=== PATIENT | male | born 1960 ===

== ENCOUNTER → 2022-12-24 07:52 | Outpatient (BNVA) | payer OTHER, SELFPAY | PROVIDERS: PCP Nurse Practitioner Family; Visit Provider Internal Medicine Rheumatology | DX: Z13.89 Encounter for screening for other disorder (principal) ==

== ENCOUNTER 2023-02-08 06:01 | Emergency (ER) | payer OTHER, SELFPAY ==
--- NOTE | ~2023-02-08 | CT_ITS ---
EXAMINATION: CT ORBIT WITH CONTRAST CLINICAL INFORMATION: Orbital cellulitis. COMPARISON: None available. TECHNIQUE: CT of the orbits was performed without and with contrast. Multiplanar reformats were rendered and reviewed. This CT examination was performed using dose optimization techniques as appropriate, variously including the following: *Automated exposure control *Adjustment of mA and/or kV according to patient size (this includes techniques or standardized protocols for targeted exams where dose is matched to indication/reason for exam; i.e. extremities or head) *Use of iterative reconstruction technique DLP: 179 mGy-cm FINDINGS: There is mild thickening and infiltration within the subcutaneous fat involving the left more than right malar eminence and infraorbital tissues. There is yep, inflammation within the preseptal region of the left more than right. There is no evidence of stranding within the intraconal or extraconal fat. There is no retrobulbar lesion. The optic nerve sheath complexes appear normal and symmetric. The extraocular muscles appear normal. The globes are symmetric. The cavernous sinuses demonstrate normal enhancement. The superior ophthalmic veins are patent and symmetric. The frontal sinuses are clear. There is mild ethmoid mucosal thickening. There is mild mucosal thickening in the left sphenoid sinus. There is severe near-complete opacification of the right maxillary sinus with internal aerated secretions. There is periapical disease involving the left second maxillary molar. The mastoids and middle ear cavities are clear. There is no acute intracranial abnormality. Chronic microangiopathic changes are seen within the white matter and there is mild degree of diffuse brain parenchymal volume loss. CT/CT orbit BI w IV con IMPRESSION: 1. Mild thickening and infiltration within the subcutaneous fat involving the left more than right malar eminence and infraorbital tissues compatible with preseptal cellulitis. No evidence of orbital involvement. 2. Severe near-complete opacification of the right maxillary sinus with internal aerated secretions. Periapical disease involving the left second maxillary molar.
[2023-02-08 06:09] VITALS: BP 150/100; BP 175/101; PULSE 73; PULSE 80; RESP 18; TEMP 36.5; O2SAT 95; O2SAT 98; BMI 27.0
--- NOTE | 2023-02-08 06:36 | ED.GENADULT ---
HPI - General Adult General Chief complaint: General Medical Stated complaint: Chemical exposure to face 3 weeks ago Time Seen by Provider: 02/08/23 06:34 Source: patient, RN notes reviewed and old records reviewed Mode of arrival: ambulatory History of Present Illness HPI narrative: 62-year-old male with a past medical history of lupus, HTN, hypothyroid, gout, CKD, HLD, diabetes, presenting to the ED complaining of chemical exposure to face 3 weeks ago from [employer]. Admits wears safety goggles however felt small drop to left side of face, reports progressively worsening, was seen at [facility] yesterday prescribed Polytrim without relief. Reports increasing facial erythema, swelling, blurry vision, and purulence/watery drainage from eyes > left. Patient wears glasses, denies drink contacts. Denies vision loss, fever/chills, pain with EOMs Onset (ago): week(s) Related Data Home Medications Medication Instructions Recorded Confirmed folic acid 1 mg tablet 1 mg PO DAILY 02/08/23 02/08/23 metformin 500 mg tablet,extended 1,000 mg PO DAILY 02/08/23 02/08/23 release 24 hr polymyxin B sulfate 10,000 1 drp ophthalmic (eye) Q6H 02/08/23 02/08/23 unit-trimethoprim 1 mg/mL eye drops Previous Rx's Medication Instructions Recorded allopurinol 100 mg tablet 200 mg PO DAILY #60 tabs 12/24/22 hydroxychloroquine 200 mg tablet 200 mg PO BID #60 tabs 12/24/22 levothyroxine 50 mcg tablet 50 mcg PO DAILY #30 tabs 12/24/22 lisinopril 10 mg tablet 10 mg PO DAILY #30 tabs 12/24/22 simvastatin 20 mg tablet 20 mg PO DAILY #30 tabs 12/24/22 Allergies Allergy/AdvReac Type Severity Reaction Status Date / Time naproxen AdvReac Intermediate Rash Verified 02/08/23 06:13 Review of Systems Review of Systems: Constitutional: No Fever, No Chills, No Fatigue, No Malaise ENT/Mouth: No Ear Pain, No Nasal Congestion, No sore throat, No Rhinorrhea, No Swallowing Difficulty Eyes: + Eye Pain, + Swelling, +Redness, No Foreign Body, + Discharge, + Vision Changes Cardiovascular: No Chest Pain, No SOB, No Edema, No Palpitations Respiratory: No Cough, No Sputum, No Wheezing, No Smoke Exposure, No Dyspnea Gastrointestinal: No Nausea, No Vomiting, No Diarrhea, No Constipation, No Abdominal pain Musculoskeletal: No joint pain, No Myalgias, No Joint Swelling Skin: No Skin Lesions, + rash Neuro: No Weakness, No Numbness, No Paresthesias, No Loss of Consciousness, No Dizziness, No Headache Yes all other systems are reviewed and are negative Constitutional: Constitutional: Reports as per HPI Eyes: Eyes: Reports photophobia [facility] Past Medical History Attestation statement: The following information was validated with the patient. Source: old records reviewed Medical History CKD (chronic kidney disease) stage 3, GFR 30-59 ml/min Diabetes mellitus Gout Hx of completed stroke Hyperlipidemia Hypertension Hypothyroid Long-term use of hydroxychloroquine Systemic lupus erythematosus Social History Social History Alcohol intake: unknown Smoked in Last 30 Days: No Use of substances other than those prescribed or required for medical reasons: Unknown Advance Directives: No Advance Directives Information Provided: Yes Physical Exam ED Vital Signs: Vital Signs - 24 hr 02/08/23 06:09 02/08/23 07:32 02/08/23 10:00 Temperature 97.7 F 97.6 F Pulse Rate 73 86 66 Respiratory Rate 18 20 17 Blood Pressure 175/101 H 163/96 H Pulse Oximetry 95 96 95 Oxygen Delivery Method Room Air Room Air Room Air BMI result Body Mass Index 27.0 Const General: cooperative and no acute distress Orientation/consciousness: patient oriented x3 Limitations: no limitations HENFL Head: Yes normal to inspection and Yes atraumatic Ears: hearing grossly normal bilaterally General nose exam: Normal external nose present Face and sinus: Yes normal facial exam Mouth: Normal oral and palatal mucosa present Eyes Other: Please refer to imaging above. Bilateral periorbital erythema/swelling > left with crusting, watery and purulence drainage. Bilateral diffuse conjunctival conjunction noted. EOM mildly limited 2/2 pain. No evidence of globe rupture. No crepitus Pupils: Equal, round and reactive pupils present Direct Ophthalmoscopy: photophobia Neck Neck: Yes normal visual inspection and Yes no meningeal signs Resp Effort & Inspection: normal respiratory effort and no respiratory distress Cardio Rate: regular rate Heart sounds: S1 normal heart sound present and S2 normal heart sound present Skin Rashes: no rashes Wounds: no wounds Neuro General: patient oriented x3, tone normal and no meningeal signs Cranial nerves: Yes Equal, round and reactive pupils present Gait exam (Neuro): Normal gait present Extrem General: Yes normal to inspection Course Course Course Narrative: -0900--no leukocytosis. Labs otherwise reassuring. Lactic acid negative -case d/w. Dr. Fall who is in agreement with plan CT orbit BI w IV con IMPRESSION: 1.? Mild thickening and infiltration within the subcutaneous fat involving the left more than right malar eminence and infraorbital tissues compatible with preseptal cellulitis. No evidence of orbital involvement. 2.? Severe near-complete opacification of the right maxillary sinus with internal aerated secretions. Periapical disease involving the left second maxillary molar. >> due to clinical concern of orbital cellulitis will consult Ophthalmology -unable to perform IOP to L eye secondary to copious discharge. Right eye IOP L -[facility] not accepting transfers at this time -929--spoke with [facility] transfer line, awaiting call back -101--spoke with Dr. Holbrook at [facility], accepted admission, patient we going to 544 bed 1 Medications Administered Discontinued Medications Generic Name Dose Route Start Last Admin Trade Name Jerry PRN Reason Stop Dose Admin Acetaminophen 975 mg 02/08/23 08:59 02/08/23 09:57 Acetaminophen 325 Mg Tablet PO 02/08/23 09:00 975 mg ONCE ONE Administration Ceftriaxone Sodium 2 gm/ 50 mls @ 100 mls/hr 02/08/23 06:56 02/08/23 07:56 Sodium Chloride IV 02/08/23 07:25 Infused ONCE ONE Infusion Vancomycin HCl 2,000 mg in 500 mls @ 250 mls/hr 02/08/23 07:31 02/08/23 08:04 Vancomycin/Ns IV 02/08/23 09:30 250 mls/hr ONCE ONE Administration Iohexol 85 ml 02/08/23 08:00 02/08/23 08:01 Iohexol 350 Mg/Ml 100 Ml Infus..Btl IV 02/08/23 08:01 85 ml ONCE ONE Administration Tetracaine HCl 1 drop 02/08/23 06:53 02/08/23 07:30 Tetracaine Hcl/Pf 0.5% Oph Uma 4 Ml Drops EYE-BOTH 02/08/23 06:54 1 drop ONCE ONE Administration Medical Decision Making Medical Decision Making MDM Narrative: 62-year-old male with a past medical history of lupus, HTN, hypothyroid, gout, CKD, HLD, diabetes, presenting to the ED complaining of chemical exposure to face 3 weeks ago from [employer] XL. On exam hypertensive, NAD, please refer to imaging above, bilateral periorbital erythema, swelling, diffuse conjunctival injection with purulence drainage & limited EOM noted. Concern for orbital cellulitis vs preseptal cellulitis vs ?chemical exposure reaction although delayed. Low suspicion for zoster or globe rupture Plan: Visual acuity, labs including lactic/blood cultures, CT orbits, empiric IV antibiotics Please refer to course for remaining clinical decision making, interpretation of labs/imaging results, and discussions with consultants and/or family members. Differential Diagnosis Differential Diagnoses: The differential diagnosis associated with the presentation includes As above Admission/Observation Consideration of admission/observation: Escalation of care including admission/observation considered Consult Healthcare Provider Management of the patient was discussed with: Health Management Consultant Lab Data [facility] Lab Attestation statement: I reviewed the patient's lab results. 02/08/23 07:11 02/08/23 07:11 Labs: Lab Results 02/08/23 02/08/23 02/08/23 Range/Units 07:11 07:11 07:16 WBC 8.6 (4.8-10.8) X10*3/uL RBC 4.90 (4.60-5.80) X10*6/uL Hgb 14.9 (14.0-18.0) g/dl Hct 43.0 (42.0-52.0) % MCV 87.8 (80.0-98.0) fL MCH 30.4 (27.0-33.0) pg MCHC 34.7 (31.0-36.0) g/dl RDW 12.0 (11.0-16.0) % Plt Count 326 (160-400) X10*3/uL MPV 9.8 (9.4-12.4) fL Immature Gran % (Auto) 0.5 H (0.0-0.4) % Neut % (Auto) 67.1 (45-73) % Lymph % (Auto) 17.4 L (20-40) % [place] % (Auto) 11.3 H (2-11) % Eos % (Auto) 2.9 (0-4) % Baso % (Auto) 0.8 (0-2) % Lymph # (Auto) 1.5 (1.2-4.9) X10*3/uL [place] # (Auto) 1.0 (0.1-1.2) X10*3/uL Eos # (Auto) 0.3 (0.0-0.4) X10*3/uL Baso # (Auto) 0.1 (0.0-0.2) X10*3/uL Abs Immat Gran (auto) 0.04 H (0.00-0.03) X10*3/uL Absolute Neuts (auto) 5.8 (2.0-8.3) x10*3/uL Absolute Nucleated RBC 0.000 (0.0-0.012) X10*3/uL Nucleated RBC % (auto) 0.0 (0.0-0.2) /100WBC ESR 12 (0-15) MM/HR Sodium 138 (135-145) mmol/L Potassium 3.9 (3.3-5.1) mmol/L Chloride 107 (96-108) mmol/L Carbon Dioxide 23 (22-29) mmol/L Anion Gap 12 (12-20) BUN 14 (9-16) mg/dL Creatinine 0.87 (0.5-1.4) mg/dL Estim Creat Clear Calc 82.9 Estimated GFR > 60 Random Glucose 145 H (60-115) mg/dL Lactic Acid (0.5-2.0) mmol/L Calcium 9.7 (8.4-10.2) mg/dL C-Reactive Protein 0.38 (< or = 0.50) mg/dL 02/08/23 Range/Units 07:16 WBC (4.8-10.8) X10*3/uL RBC (4.60-5.80) X10*6/uL Hgb (14.0-18.0) g/dl Hct (42.0-52.0) % MCV (80.0-98.0) fL MCH (27.0-33.0) pg MCHC (31.0-36.0) g/dl RDW (11.0-16.0) % Plt Count (160-400) X10*3/uL MPV (9.4-12.4) fL Immature Gran % (Auto) (0.0-0.4) % Neut % (Auto) (45-73) % Lymph % (Auto) (20-40) % [place] % (Auto) (2-11) % Eos % (Auto) (0-4) % Baso % (Auto) (0-2) % Lymph # (Auto) (1.2-4.9) X10*3/uL [place] # (Auto) (0.1-1.2) X10*3/uL Eos # (Auto) (0.0-0.4) X10*3/uL Baso # (Auto) (0.0-0.2) X10*3/uL Abs Immat Gran (auto) (0.00-0.03) X10*3/uL Absolute Neuts (auto) (2.0-8.3) x10*3/uL Absolute Nucleated RBC (0.0-0.012) X10*3/uL Nucleated RBC % (auto) (0.0-0.2) /100WBC ESR (0-15) MM/HR Sodium (135-145) mmol/L Potassium (3.3-5.1) mmol/L Chloride (96-108) mmol/L Carbon Dioxide (22-29) mmol/L Anion Gap (12-20) BUN (9-16) mg/dL Creatinine (0.5-1.4) mg/dL Estim Creat Clear Calc Estimated GFR Random Glucose (60-115) mg/dL Lactic Acid 0.7 (0.5-2.0) mmol/L Calcium (8.4-10.2) mg/dL C-Reactive Protein (< or = 0.50) mg/dL Radiology Impression Discussion of test interpretation with radiology: I have reviewed the radiologist's reading. External Record Review External record reviewed: Inpatient record, Office record, Outpatient record, Prior outpatient labs, Prior outpatient radiology, Primary care record and Outside ED record Tests considered The following testing was considered but not selected: As above Critical Care Time Critical Care Time Critical Care Time: Yes Total Critical Care Time: 50 Attestation: I have personally provided critical care time exclusive of time spent on separately billable procedures. Time includes review of lab data, radiology results, discussion with consultants, and monitoring for potential decompensation. Intervention performed as documented. Discharge Plan Discharge Clinical Impression: Preseptal cellulitis Patient Disposition: [facility] Transfer Details: [facility], accepting Dr. Holbrook Prescriptions: No Action polymyxin B sulf-trimethoprim 10,000 unit- 1 mg/mL drops 1 drp ophthalmic (eye) Q6H folic acid 1 mg tablet 1 mg PO DAILY metformin 500 mg tablet extended release 24 hr 1,000 mg PO DAILY hydroxychloroquine 200 mg tablet 200 mg PO BID Qty: 60 6RF lisinopril 10 mg tablet 10 mg PO DAILY Qty: 30 5RF allopurinol 100 mg tablet 200 mg PO DAILY Qty: 60 6RF levothyroxine 50 mcg tablet 50 mcg PO DAILY Qty: 30 5RF simvastatin 20 mg tablet 20 mg PO DAILY Qty: 30 5RF
[2023-02-08 07:15] LABS: MANUAL DIFF FLAG NO
[2023-02-08 07:25] LABS: Basophils Absolute Auto 0.1 X10*3/uL (0.0-0.2); Basophils Percent Auto 0.8 % (0-2); Eosinophils Absolute Auto 0.3 X10*3/uL (0.0-0.4); Eosinophils Percent Auto 2.9 % (0-4); Hemoglobin 14.9 g/dl (14.0-18.0); Imm Gran Abs Auto 0.04 X10*3/uL (0.00-0.03); Imm Gran Pct Auto 0.5 % (0.0-0.4); Lymphocytes Absolute Auto 1.5 X10*3/uL (1.2-4.9); Lymphocytes Percent Auto 17.4 % (20-40); Mean Corpuscular HGB Conc 34.7 g/dl (31.0-36.0); Mean Corpuscular Hemoglobin 30.4 pg (27.0-33.0); Mean Corpuscular Volume 87.8 fL (80.0-98.0); Mean Platelet Volume 9.8 fL (9.4-12.4); Monocytes Percent Auto 11.3 % (2-11); Neutrophils Absolute Auto 5.8 x10*3/uL (2.0-8.3); Neutrophils Percent Auto 67.1 % (45-73); Platelet Count 326 X10*3/uL (160-400); White Blood Count 8.6 X10*3/uL (4.8-10.8)
[2023-02-08] MEDS: cefTRIAXone sodium 2 GM in 0.9 % Sodium Chloride 50 ML IV (07:30)
[2023-02-08] MEDS: Tetracaine HCl/PF 0.5% Oph Sol 4 ML DROPS 1 DROP EYE-BOTH (07:30)
[2023-02-08 07:31] LABS: Anion Gap 12 (12-20); Blood Urea Nitrogen 14 mg/dL (9-16); C Reactive Protein 0.38 mg/dL (< or = 0.50); Calcium 9.7 mg/dL (8.4-10.2); Carbon Dioxide 23 mmol/L (22-29); Chloride 107 mmol/L (96-108); Creatinine Clr Calc Pharmacy 82.9; Estimated Glomerular Filt Rate > 60; Glucose Random 145 mg/dL (60-115); Potassium 3.9 mmol/L (3.3-5.1); Sodium 138 mmol/L (135-145)
[2023-02-08 07:32] VITALS: PULSE 86; RESP 20; O2SAT 96
[2023-02-08 07:37] LABS: Lactic Acid 0.7 mmol/L (0.5-2.0)
[2023-02-08] MEDS: iohexoL 350 MG/ML 100 ML INFUS..BTL 85 ML IV (08:01)
[2023-02-08] MEDS: vancomycin/NS 2,000 MG/500 ML PLAST..BAG 250 MG IV (08:04)
[2023-02-08 08:05] LABS: Erythrocyte Sedimentation Rate 12 MM/HR (0-15)
--- NOTE | 2023-02-08 08:39 | PHA.MEDREC ---
Pharmacy Consult ? Medication Reconciliation Pharmacy has completed the medication reconciliation. spoke with patient. He was able to verify his medications. His metformin is prescribed for 500mg BID however he takes 1000mg once daily at home. Patient only had Polymyxin eye drops today.
--- NOTE | 2023-02-08 09:23 | MHC.EDTECH ---
@[phone] called [facility] at the request of ROHITH Lakhani. Spoke with an individual on the phone. Stated we want to transfer the pt to them. The individual states that they are closed to Ophthalmology transfers and closed to ED to ED transfers. The individual on the phone recommended we call [facility]. Lola NEWBERRY aware that [facility] would not take the patient.
--- NOTE | 2023-02-08 09:26 | MHC.EDTECH ---
@[phone] called [facility] to see if they would take the patient. The individual on the phone took patient demographics and a call back number. She requested to speak to ROHITH Davila regarding the diagnosis. Lola took the call right away. Waiting for a call back from [facility] at this time to see if they will accept.
[2023-02-08] MEDS: Acetaminophen 325 MG TABLET 975 MG PO (09:57)
[2023-02-08 10:00] VITALS: BP 163/96; PULSE 66; RESP 17; TEMP 36.4; O2SAT 95
--- NOTE | 2023-02-08 10:14 | MHC.EDTECH ---
@0547 [facility] calls back to speak with Lola NEWBERRY. Lola notifies me that the patient was accepted to [facility]. The accepting is Dr. Holbrook. Direct admission to 544 Bed 1 per Lola.
== END 2023-02-08 12:11 | disposition short-term general hospital (02) ==
PROVIDERS: Physician Assistant; Emergency Provider Internal Medicine; PCP Internal Medicine
DX: L03.213 Periorbital cellulitis (principal); E11.22 Type 2 diabetes mellitus with diabetic chronic kidney disease; I12.9 Hypertensive chronic kidney disease with stage 1 through stage 4 chronic kidney disease, or unspecified chronic kidney disease; N18.30 Chronic kidney disease, stage 3 unspecified; E78.5 Hyperlipidemia, unspecified; Z79.899 Other long term (current) drug therapy; Z79.02 Long term (current) use of antithrombotics/antiplatelets; Z79.84 Long term (current) use of oral hypoglycemic drugs
CPT/HCPCS: 36415; 70481; 80048; 83605; 85025; 85652; 86140; 87040; 96365; 96366; 96367; 99284; 99285; J0696; J3370; Q9967

== ENCOUNTER 2023-05-13 09:18 | Outpatient (AMB) | payer OTHER, SELFPAY ==
--- NOTE | 2023-05-13 09:26 | MHC.OFFVIS ---
Intake Vital Signs 05/13/23 09:28 Height 5 ft 8 in Weight 171 lb 8.314 oz BMI 26.1 BP 122/70 Blood Pressure Location Lt brachial Position Sitting Pulse 68 Pulse Source Pulse Oximeter Temp 97.2 F Temp Source Skin Pulse Oximetry (%) 96 Oxygen Delivery Method Room Air Intake Visit Reasons: Gout flare up Intake Note: Here for gout flare. c/o right knee swelling, painful, very red , hard to bend. 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 Accompanied by: Self / Same As Patient Allergies naproxen Adverse Reaction (Intermediate, Verified 05/13/23 09:30) Rash Medication List - Last Reconciled 05/13/23 by Elie Prabhakar MD allopurinol 200 mg (2 x 100 mg) PO DAILY empagliflozin (Jardiance) 10 mg PO DAILY folic acid 1 mg PO DAILY hydroxychloroquine 200 mg PO BID levothyroxine 50 mcg PO DAILY lisinopril 10 mg PO DAILY metformin ER 1,000 mg PO DAILY polymyxin B sulf-trimethoprim 10,000 unit- 1 mg/mL 1 drp ophthalmic (eye) Q6H simvastatin 20 mg PO DAILY tobramycin-dexamethasone 0.3-0.1 % 2 drps ophthalmic (eye) QID HPI HPI Comments History of Present Illness Details The patient presents with complaints of pain and swelling in the right knee. This developed about 6 days ago. He noted a scab over the anterior knee the a day before that. He has been able to bicycle to work but notes more pain with standing or walking. He has not had any fever or chills. He does have a history of gout but has been faithful with taking allopurinol 200 mg daily for number of years now. He also of course has SLE currently on hydroxychloroquine 200 mg twice a day. He is on lisinopril for hypertension and recently had Jardiance added to his metformin for his type 2 diabetes. At the end of January he developed inflammation and pain in the eyes. I do not have the hospital record but it sounds like there was concern about a cellulitis of the orbit. At the time of the orbital swelling there was much irritation of the skin thought to be a chemical reaction to a substance he has been working with. He was hospitalized for 2 days and received he says intravenous antibiotics and subsequent oral antibiotics. The skin lesions and the eye swelling have totally resolved. He still using a topical eyedrops he says pending another eye doctor appointment. He tells me there is an eye procedure planned for June. It sounds like he may be having a plastic procedure on his eyelids. He does not seem to have any other skin rashes or joint pains. He has noted a little bit of ankle edema in the past month. [facility] Medical History CKD (chronic kidney disease) stage 3, GFR 30-59 ml/min Diabetes mellitus Gout Hx of completed stroke Hyperlipidemia Hypertension Hypothyroid Long-term use of hydroxychloroquine Systemic lupus erythematosus Social History (Updated 05/13/23 @ 09:30 by CHER Shearer) Household Members: Spouse Alcohol intake: former Patient Tobacco Use Status: Never used Tobacco Review of Systems Const Details: Negative for appetite change, weight change, fever, chills, malaise and fatigue Eyes Details: See HPI for episode of eye inflammation the end of January. Presently negative for vision change, dry eyes,headaches and dizziness ENT Details: Negative for hearing change, tinnitus, oral ulcer, nose bleeds and oral dryness. Card Details: Some ankle edema as noted above. Negative chest pain, palpitations and syncope Resp Details: Negative for SOB, cough and wheezing GI Details: Negative indigestion/heartburn, nausea, abdominal pain, bowel changes, diarrhea, constipation and bloody stool. Details: Negative for dysuria, hematuria, nocturia, decreased force/flow and genital discharge Skin/Breast Details: Slight area of skin redness on the right wrist. This occurred at the same time as he had the chemical exposure on his face. It is subsiding. Negative for itching, hives, Raynaud's symptoms, sun sensitivity, and skin cancer Neuro Details: Negative for epilepsy, palsy, stroke, changes in speech, tingling and weakness Psych Details: Negative for anxiety, depression and stress Endo Details: Negative for polyuria and polydypsia Dino/Lymph Details: Negative for excessive bruising or bleeding. Physical Exam Vital Signs: Last Vital Signs Temp 97.2 F 05/13/23 09:28 Pulse 68 05/13/23 09:28 BP 122/70 05/13/23 09:28 Pulse Ox 96 05/13/23 09:28 Oxygen Delivery Method Room Air 05/13/23 09:28 BMI result Body Mass Index 26.1 APPEARANCE: Patient in no acute distress EYES no redness, pupils equal and reactive to light, eyelids normal EARS: External ear normal, canal clear and tympanic membrane normal. NOSE/SINUS: Airflow through both nares, no nasal discharge, no bleeding THROAT: Oral mucosa moist, no ulcerations NECK: No thyromegaly or masses, no adenopathy, trachea midline. HEART: Regulrar rhythm, S1-S2 heard, no murmurs, rubs or gallops. LUNG: Clear to percussion and auscultation ABD: Normal bowel sounds, no organomegaly, masses or tenderness. EXTREMITIES: There is trace ankle and pedal edema on the left and a bit more ankle and pedal edema on the right. He has no calf tenderness, normal peripheral pulses. NEURO: Oriented and alert x3. No focal weakness. Reflexes symmetric. Gait normal. SKIN: There is a patch of red skin over the right lateral wrist region. This looks like a contact dermatitis. The right knee has some redness with an eschar in the middle of it. No other skin rashes. Photograph of knees: LEFT RIGHT JOINT EXAM: ?? Right knee has swelling with mild pain at the extremes of flexion extension. Anteriorly the knee has some bogginess and redness consistent with cellulitis. There may also be some element of prepatellar bursitis. There is a skin lesion that healing anteriorly that could have been an injury wound. I do not really detect joint fluid present and has no tenderness around the joint margins. There is no popliteal swelling or tenderness. Other joints have pain-free range of motion without any tenderness or swelling. Results Reviewed Results Reviewed: Laboratory Tests 02/08/23 02/08/23 02/08/23 07:11 07:11 07:16 WBC 8.6 Hgb 14.9 ESR 12 Creatinine 0.November lab work from [place]: Creatinine 1.05, A1c 7.5, urine microalbumin creatinine ratio 215 December 2021 lab work: Uric acid 3.7 Assessment & Plan Assessment & Plan (1) Systemic lupus erythematosus: Comment: 2004: Rash, joint pains, Positive anti-DNA, proteinuria, renal Bx with focal GN 02/2005. Increased proteinuria 09/26; Cellcept restarted 10/27- stoppped 02/27(nephritis symptoms improved) Repeat renal biopsy - 02/12/12 - diffuse lupus nephritis, stage 3 to 4. Minimal scarring. Cellcept again 1426-3412 with remission Eye exam for hydroxychloroquine toxicity negative February 2015, December 2016, December 2017, May 2019, Jun 2020, June 2021 Code(s): M32.9 - Systemic lupus erythematosus, unspecified (2) Gout: Comment: Left wrist attack: MSU crystals present allopurinol since 2011 Code(s): M10.9 - Gout, unspecified (3) CKD (chronic kidney disease) stage 3, GFR 30-59 ml/min: Comment: Dr. Mcclure - 05/07/16 - doing well, creatinine 1.2 (stage II currently), check for proteinuria; f/u 1 year 06/02/18 - renal function at baseline; follow-up 1 year 07/20/2019 -doing well, increase lisinopril to 10 mg/day, add folic acid; Code(s): N18.30 - Chronic kidney disease, stage 3 unspecified (4) Diabetes mellitus: Code(s): E11.9 - Type 2 diabetes mellitus without complications (5) Acute cellulitis: Code(s): L03.90 - Cellulitis, unspecified Plan The patient has some swelling and pain in the right prepatellar region. There may be some bogginess in the prepatellar bursa but not enough to tap for fluid. He does have an entry wound so I think this is a localized cellulitis with maybe some extension into the prepatellar bursa. It has been there for a week he and he still has the ability to walk on it. I do not see any fluid within the joint that would suggest intra-articular infection or inflammation. He does have a history of gout and this could be gout but the relatively low level of inflammation would suggest more likely an infection. We will treat him with Keflex 500 q.i.d.. I will check some lab work looking into the his renal function, proteinuria, CBC and inflammatory markers. The ankle edema could be because he has been on his feet more but in the recent past previously he had such edema with exacerbation of his renal disease from SLE. I did warn him that if the knee inflammation does not subside after 2 days on the antibiotics he needs to go to the ER to be admitted for intravenous antibiotics. He was advised to go home and elevate his legs. He should be out of work for week. Follow-up in a week would be reasonable. Orders: Orders Basic Metabolic Panel Today M32.9 - Systemic lupus erythematosus, unspecified Comprehensive Met. Panel Today M32.9 - Systemic lupus erythematosus, unspecified C Reactive Protein Today M32.9 - Systemic lupus erythematosus, unspecified Protein Creatinine Ratio, Ur Today M32.9 - Systemic lupus erythematosus, unspecified Complete Blood Count Auto Diff Today M32.9 - Systemic lupus erythematosus, unspecified Erythrocyte Sedimentation Rate Today M32.9 - Systemic lupus erythematosus, unspecified Medications: New cephalexin 500 mg PO QID 40 caps 0RF L03.90 - Cellulitis, unspecified Coding Level of Care Code Est Pt Level 4 (81768) Diagnoses Systemic lupus erythematosus M32.9 Gout M10.9 CKD (chronic kidney disease) stage 3, GFR 30-59 ml/min N18.30 Diabetes mellitus E11.9 Acute cellulitis L03.90
[2023-05-13 09:28] VITALS: BP 122/70; PULSE 68; TEMP 36.2; O2SAT 96; BMI 26.1
== END 2023-05-13 10:00 | disposition home or self-care (01) ==
PROVIDERS: PCP Internal Medicine; Visit Provider Internal Medicine Rheumatology
DX: M32.9 Systemic lupus erythematosus, unspecified (principal); M10.9 Gout, unspecified; N18.30 Chronic kidney disease, stage 3 unspecified; E11.9 Type 2 diabetes mellitus without complications; L03.90 Cellulitis, unspecified
CPT/HCPCS: 99214

== ENCOUNTER → 2023-05-13 09:18 | Outpatient (BNVA) | payer OTHER, SELFPAY | PROVIDERS: PCP Internal Medicine; Visit Provider Internal Medicine Rheumatology ==

== ENCOUNTER 2023-05-13 10:12 | Outpatient (REF) | payer OTHER, SELFPAY ==
[2023-05-13 13:17] LABS: MANUAL DIFF FLAG NO
[2023-05-13 13:21] LABS: Basophils Absolute Auto 0.1 X10*3/uL (0.0-0.2); Basophils Percent Auto 0.8 % (0-2); Eosinophils Absolute Auto 0.3 X10*3/uL (0.0-0.4); Eosinophils Percent Auto 2.6 % (0-4); Hematocrit 41.7 % (42.0-52.0); Hemoglobin 13.7 g/dl (14.0-18.0); Imm Gran Abs Auto 0.06 X10*3/uL (0.00-0.03); Imm Gran Pct Auto 0.6 % (0.0-0.4); Lymphocytes Absolute Auto 1.9 X10*3/uL (1.2-4.9); Lymphocytes Percent Auto 19.7 % (20-40); Mean Corpuscular HGB Conc 32.9 g/dl (31.0-36.0); Mean Corpuscular Hemoglobin 30.4 pg (27.0-33.0); Mean Corpuscular Volume 92.7 fL (80.0-98.0); Mean Platelet Volume 10.5 fL (9.4-12.4); Monocytes Absolute Auto 1.3 X10*3/uL (0.1-1.2); Monocytes Percent Auto 13.2 % (2-11); Neutrophils Absolute Auto 5.9 x10*3/uL (2.0-8.3); Neutrophils Percent Auto 63.1 % (45-73); Platelet Count 391 X10*3/uL (160-400); Red Cell Distribution Width 12.6 % (11.0-16.0); White Blood Count 9.4 X10*3/uL (4.8-10.8)
[2023-05-13 13:54] LABS: Alanine Aminotransferase 36 U/L (0-40); Alkaline Phosphatase 80 U/L (39-117); Anion Gap 11 (12-20); Aspartate Amino Transferase 22 U/L (5-37); Bilirubin Total 0.2 mg/dL (0.0-1.0); Blood Urea Nitrogen 21 mg/dL (9-16); C Reactive Protein 6.68 mg/dL (< or = 0.50); Calcium 9.8 mg/dL (8.4-10.2); Carbon Dioxide 22 mmol/L (22-29); Chloride 109 mmol/L (96-108); Estimated Glomerular Filt Rate > 60; Glucose Random 139 mg/dL (60-115); Potassium 4.4 mmol/L (3.3-5.1); Sodium 138 mmol/L (135-145); Total Protein 7.6 g/dL (6.5-8.0)
[2023-05-13 14:05] LABS: Erythrocyte Sedimentation Rate 65 MM/HR (0-15)
[2023-05-13 14:35] LABS: Creatinine Urine 153.39 mg/dL; Protein/Creatinine Ratio, Ur 0.18 (<0.2); Total Protein Urine Random 28 mg/dL (<12)
== END 2023-05-13 10:13 | disposition home or self-care (01) ==
LOC: HO.10HDL 10:12
PROVIDERS: Visit Provider Internal Medicine Rheumatology
DX: M32.9 Systemic lupus erythematosus, unspecified (principal)
CPT/HCPCS: 36415; 80053; 84156; 85025; 85652; 86140

== ENCOUNTER 2023-05-26 09:16 | Outpatient (AMB) | payer OTHER, SELFPAY ==
--- NOTE | 2023-05-26 09:20 | A.OFFVIS_ITS ---
Intake Vital Signs 05/26/23 09:27 Height 5 ft 8 in Weight 171 lb 11.841 oz BMI 26.1 BP 114/64 Blood Pressure Location Lt brachial Position Sitting Pulse 70 Pulse Source Pulse Oximeter Temp 97.1 F Temp Source Skin Pulse Oximetry (%) 95 Oxygen Delivery Method Room Air Intake Visit Reasons: SLE/Cellulitis Intake Note: Patient here to follow up on right knee redness and swelling. 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 He finished off the course of Keflex. He says the pain is completely gone. He has been able to bicycle to work once again. However there still is some redness anteriorly in the prepatellar region. It is not tender. [facility] Medical History Diabetes mellitus Hx of completed stroke Hyperlipidemia Long-term use of hydroxychloroquine CKD (chronic kidney disease) stage 3, GFR 30-59 ml/min Gout Hypothyroid Hypertension Systemic lupus erythematosus Social History Household Members: Spouse Alcohol intake: former Patient Tobacco Use Status: Never used Tobacco Review of Systems Const Details: Negative for appetite change, weight change, fever, chills, malaise and fatigue Eyes Details: Negative for vision change, dry eyes,headaches and dizziness Skin/Breast Details: There is still some scattered areas of redness from his exposure to the substances at work. He uses some topical steroid cream on this. There is the above-noted redness over the prepatellar region as well. Negative for rash, hives, Raynaud's symptoms, sun sensitivity, and skin cancer Endo Details: Negative for polyuria and polydypsia Dino/Lymph Details: Negative for excessive bruising or bleeding. Physical Exam Vital Signs: Last Vital Signs Temp 97.1 F 05/26/23 09:27 Pulse 70 05/26/23 09:27 BP 114/64 05/26/23 09:27 Pulse Ox 95 05/26/23 09:27 Oxygen Delivery Method Room Air 05/26/23 09:27 BMI result Body Mass Index 26.1 APPEARANCE: Patient in no acute distress EYES no redness, pupils equal and reactive to light, eyelids normal EXTREMITIES: There is no edema today. He has no calf tenderness, normal peripheral pulses. NEURO: Oriented and alert x3. No focal weakness. Reflexes symmetric. Gait normal. SKIN: There is a patchy the patchy redness of red skin over the right prepatellar area. It is not tender or indurated. I do not feel any fluid in the prepatellar bursa. There are a few papules on the right forearm that suggest a contact dermatitis. No other skin rashes. JOINT EXAM: ?? Right knee: pain-free range of motion with no swelling or tenderness. The skin overlying the patella has the above noted changes. No induration or tenderness. There are breaks in the skin. Other joints have pain-free range of motion without any tenderness or swelling.? Assessment & Plan Assessment & Plan (1) Acute cellulitis: Code(s): L03.90 - Cellulitis, unspecified Plan There is still a little redness anteriorly in the prepatellar region. This could be some return of his prepatellar cellulitis so I will put him on some antibiotics. We will put him on doxycycline this time in the event that there could have been a resistant organism. It is also possible this could be some dermatitis related to SLE or his previously exposure to the industrial chem icals. He will continue with topical steroids in this area. We will aim for follow-up at about 3 months. The lupus seems stable. He did not have significant proteinuria and renal function seems stable. Medications: New doxycycline hyclate 100 mg PO BID 20 caps 0RF L03.90 - Cellulitis, unspecified Coding Level of Care Code Est Pt Level 3 (84170) Diagnoses Acute cellulitis L03.90
[2023-05-26 09:27] VITALS: BP 114/64; PULSE 70; TEMP 36.2; O2SAT 95; BMI 26.1
== END 2023-05-26 10:05 | disposition home or self-care (01) ==
PROVIDERS: PCP Internal Medicine; Visit Provider Internal Medicine Rheumatology
DX: L03.90 Cellulitis, unspecified (principal)
CPT/HCPCS: 99213

== ENCOUNTER → 2023-05-26 09:16 | Outpatient (BNVA) | payer OTHER, SELFPAY | PROVIDERS: PCP Internal Medicine; Visit Provider Internal Medicine Rheumatology ==

== ENCOUNTER 2023-05-28 04:17 | Observation (INO) | payer OTHER, SELFPAY ==
[2023-05-28] VITALS (8 sets, daily range): BP systolic 80–127; BP diastolic 59–89; PULSE 65–80; RESP 12–18; TEMP 35.9–36.5; O2SAT 94–100; BMI 25.1
--- NOTE | 2023-05-28 | ECG_ITS ---
Test Reason : DIZZINESS Blood Pressure : / mmHG Vent. Rate : 075 BPM Atrial Rate : 075 BPM P-R Int : 200 ms QRS Dur : 102 ms QT Int : 404 ms P-R-T Axes : 058 019 031 degrees QTc Int : 451 ms Normal sinus rhythm Normal ECG No previous ECGs available Referred By: Generic ED Physician Electronically Signed By:CHU DESIR
--- NOTE | ~2023-05-28 | XR_ITS ---
EXAMINATION: XR CHEST CLINICAL INFORMATION: Cough. Hypertension. COMPARISON: None available. TECHNIQUE: 2 views of the chest were obtained. FINDINGS: The cardiomediastinal silhouette is normal. There is no focal lung consolidation or pleural effusion. The bony structures and soft tissues are unremarkable. XR/XR chest 2V IMPRESSION: No active cardiopulmonary disease.
--- NOTE | ~2023-05-28 | XR_ITS ---
EXAMINATION: XR KNEE, RIGHT CLINICAL INFORMATION: Swelling. Rule out effusion. COMPARISON: None available. TECHNIQUE: 2 views of the right knee. FINDINGS: Bone alignment is normal. No fracture or dislocation. The joint spaces are normal. There is a small osteophyte at the quadriceps tendon insertion to the patella. There is no joint effusion. There is soft tissue swelling over the anterior knee overlying the patella and patellar tendon. XR/XR knee RT 2V IMPRESSION: Anterior soft tissue swelling. No joint effusion.
--- NOTE | 2023-05-28 04:37 | MHC.EDTECH ---
Patient arrived by EMS,patient was changed into hospital attire and Vitals taken. Patient placed on the air sampling and monitoring and EKG obtained. Call chowdhury within reach.
[2023-05-28 04:38] LABS: MANUAL DIFF FLAG NO
[2023-05-28 04:39] LABS: Basophils Absolute Auto 0.1 X10*3/uL (0.0-0.2); Basophils Percent Auto 0.4 % (0-2); Eosinophils Absolute Auto 0.1 X10*3/uL (0.0-0.4); Eosinophils Percent Auto 0.5 % (0-4); Hematocrit 42.2 % (42.0-52.0); Hemoglobin 14.2 g/dl (14.0-18.0); Imm Gran Abs Auto 0.07 X10*3/uL (0.00-0.03); Imm Gran Pct Auto 0.5 % (0.0-0.4); Lymphocytes Absolute Auto 1.3 X10*3/uL (1.2-4.9); Lymphocytes Percent Auto 9.3 % (20-40); Mean Corpuscular HGB Conc 33.6 g/dl (31.0-36.0); Mean Corpuscular Hemoglobin 30.7 pg (27.0-33.0); Mean Corpuscular Volume 91.3 fL (80.0-98.0); Mean Platelet Volume 9.7 fL (9.4-12.4); Monocytes Absolute Auto 1.2 X10*3/uL (0.1-1.2); Monocytes Percent Auto 8.8 % (2-11); Neutrophils Absolute Auto 11.1 x10*3/uL (2.0-8.3); Neutrophils Percent Auto 80.5 % (45-73); Platelet Count 385 X10*3/uL (160-400); Red Blood Count 4.62 X10*6/uL (4.60-5.80); Red Cell Distribution Width 12.7 % (11.0-16.0); White Blood Count 13.8 X10*3/uL (4.8-10.8)
[2023-05-28] MEDS: 0.9 % Sodium Chloride 1,000 ML 999 ML IV (04:49)
[2023-05-28 04:55] LABS: Alanine Aminotransferase 28 U/L (0-40); Albumin Level 3.8 g/dL (3.5-5.0); Alkaline Phosphatase 56 U/L (39-117); Anion Gap 16 (12-20); Aspartate Amino Transferase 26 U/L (5-37); Bilirubin Direct 0.2 mg/dL (0.0-0.5); Bilirubin Total 0.4 mg/dL (0.0-1.0); Blood Urea Nitrogen 31 mg/dL (9-16); Calcium 9.2 mg/dL (8.4-10.2); Carbon Dioxide 17 mmol/L (22-29); Chloride 107 mmol/L (96-108); Creatinine Clr Calc Pharmacy 41.4; Estimated Glomerular Filt Rate 40; Glucose Random 157 mg/dL (60-115); Lipase 16 U/L (8-78); Potassium 4.2 mmol/L (3.3-5.1); Sodium 136 mmol/L (135-145); Total Protein 6.9 g/dL (6.5-8.0)
[2023-05-28 05:07] LABS: Troponin-I High Sensitivity 4.3 ng/L (<3.5-35.0)
--- NOTE | 2023-05-28 05:29 | ED.DIZZY ---
HPI - Dizziness General Chief Complaint: Dizziness Stated Complaint: dizziness Time Seen by Provider: 05/28/23 05:06 Source: patient Mode of arrival: EMS Limitations: no limitations History of Present Illness HPI Narrative: 62-year-old male with history of diabetes, hypertension, hyperlipidemia, hypothyroidism, lupus on hydrochloroquine, chronic kidney disease who presents emergency department for evaluation of lightheadedness, dizziness and rash to his right arm. The patient works at the [employer]. 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 He states that he was not wearing gloves and did get some glue on his hand. After getting the glue on his hand he did developed redness and pruritus to the right hand and right arm. He states that he developed a rash that spread to include his entire right arm. States he has had a similar rash in the past when this glue is gotten his skin. He states that about 2 hours after the exposure to the glue he felt lightheaded and dizzy as if the room was spinning he was going to pass out. He states that his hands and feet then became numb and were cramping. He states that he had a lie down on the floor since he felt like he was going to pass out. An ambulance was called. The paramedics reported that his blood pressure was 80/66. His blood pressure on arrival was 105/ 68 and the other vital signs were normal. The patient does have a history of skin infections and had a left preseptal orbital cellulitis 02/08/2023, seen here in the emergency department and sent to [facility] for further management. the patient's lupus is treated by ourrheumatologist Dr. Prabhakar who saw the patient on 05/13/2023 secondary to a swollen right knee. Patient states that he was told that he had a right knee infection and he completed a course of cephalexin. I did review Dr. Prabhakar snow the patient was treated for cellulitis with possible pre patella bursitis of the right knee. Follow-up note on 05/26/2023 states that the patient's symptoms completely resolved However he still had redness over the prepatellar region and scattered rash over his body which Dr. Prabhakar felt be secondary to exposure from chemicals at work. The patient denied fever, chills, rhinorrhea, sore throat. he has had a nonproductive cough over the last several days. He denied chest pain, shortness of breath, nausea, vomiting, diarrhea. States that he has frequency at his baseline but no dysuria. Related Data Home Medications Medication Instructions Recorded Confirmed folic acid 1 mg tablet 1 mg PO DAILY 02/08/23 05/28/23 metformin 500 mg tablet,extended 1,000 mg PO DAILY 02/08/23 05/28/23 release 24 hr empagliflozin 10 mg tablet 10 mg PO DAILY 05/13/23 05/28/23 (Jardiance) tobramycin 0.3 %-dexamethasone 0.1 2 drp ophthalmic (eye) QID 05/13/23 05/28/23 % eye drops,suspension acetaminophen 650 mg 1,300 mg PO Q8H PRN Pain 05/28/23 05/28/23 tablet,extended release simvastatin 20 mg tablet 20 mg PO BEDTIME 05/28/23 05/28/23 Previous Rx's Medication Instructions Recorded allopurinol 100 mg tablet 200 mg (2 x 100 mg) PO DAILY #60 12/24/22 tabs hydroxychloroquine 200 mg tablet 200 mg PO BID #60 tabs 12/24/22 levothyroxine 50 mcg tablet 50 mcg PO DAILY #30 tabs 12/24/22 lisinopril 10 mg tablet 10 mg PO DAILY #30 tabs 12/24/22 doxycycline hyclate 100 mg capsule 100 mg PO BID #20 caps 05/26/23 Allergies Allergy/AdvReac Type Severity Reaction Status Date / Time naproxen AdvReac Intermediate Rash Verified 05/26/23 09:25 Review of Systems Review of Systems: Yes all other systems are reviewed and are negative [facility] Past Medical History [facility] Narrative: Social history: He is . He denies tobacco, alcohol and drug use. 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 Medical History Diabetes mellitus Hx of completed stroke Hyperlipidemia Long-term use of hydroxychloroquine CKD (chronic kidney disease) stage 3, GFR 30-59 ml/min Gout Hypothyroid Hypertension Systemic lupus erythematosus Social History Social History Household Members: Spouse Alcohol intake: never Patient Tobacco Use Status: Never used Tobacco Smoked in Last 30 Days: No Use of substances other than those prescribed or required for medical reasons: No Advance Directives: No Advance Directives Information Provided: Yes Nutrition Risks: No Nutritional Risk service: No Physical Exam Vital Signs: Vital Signs: Last Vital Signs Temp 97.7 F 05/28/23 06:04 Pulse 70 05/28/23 10:32 Resp 18 05/28/23 06:04 BP 119/82 05/28/23 10:32 Pulse Ox 96 05/28/23 06:04 O2 Del Method Room Air 05/28/23 06:04 BMI result Body Mass Index 25.1 Vital signs reviewed and were normal Exam General: Awake, alert in no distress Head: Normocephalic, atraumatic EENT: PERRL, Lids normal, sclera normal, conjunctiva normal, nose normal , ears normal, throat without erythema or exudates. Patient's left eye deviates the left but he does have full range of motion, states is chronic any has a lazy eye Neck: Supple, no adenopathy, trachea midline and nontender Lung: breath sounds symmetric, no wheezing, rales or rhonchi Chest: symmetric movement, nontender Heart: regular rate and rhythm, normal S1, S2 no murmurs or rubs Abdomen: soft, non-tender, nondistended, normal bowel sounds Back: no vertebral tenderness, no CVAT Extremities: no deformities, moves all extremities symmetrically Skin: the patient has an erythematous nonblanching rash to his right arm from the hand all the way to the shoulder, it is slightly warm to the touch, he has several small isolated areas of erythema to his right chest which do not willie with pressure, patient's right is warm to the touch, the area is erythematous with no significant joint effusion. Neuro: Awake, alert, oriented, normal speech, cranial nerves intact, moves all extremities symmetrically Psych: Pleasant, cooperative Medications Administered Generic Name Dose Route Start Last Admin Trade Name Freq PRN Reason Stop Dose Admin Enoxaparin Sodium 40 mg 05/28/23 06:15 05/28/23 06:42 Enoxaparin Sodium 40 Mg/0.4 Ml Syringe SUBCUT 40 mg Q24H JOANIE Administration Lactated Ringer's 1,000 mls @ 125 mls/hr 05/28/23 10:00 05/28/23 10:27 Lr IVCONT 125 mls/hr .Q8H JOANIE Administration Insulin Human Lispro 0 unit 05/28/23 07:30 05/28/23 12:11 Insulin Lispro 100 Unit/Ml 3 Ml Vial SUBCUT Not Given QIDACHS COUNTS INCLUDE 234 BEDS AT THE [facility] Protocol Sodium Chloride 3 ml 05/28/23 08:00 05/28/23 12:22 0.9 % Sodium Chloride Flush 3 Ml Syringe IVFLUSH Not Given QSHIFT COUNTS INCLUDE 234 BEDS AT THE [facility] Discontinued Medications Generic Name Dose Route Start Last Admin Trade Name Freq PRN Reason Stop Dose Admin Diphenhydramine HCl 50 mg 05/28/23 06:27 05/28/23 06:41 Diphenhydramine Hcl 50 Mg/Ml Vial IVPUSH 05/28/23 06:28 50 mg ONCE ONE Administration Sodium Chloride 1,000 mls @ 999 mls/hr 05/28/23 04:45 05/28/23 05:55 Ns IV 05/28/23 05:45 Infused .Q1H1M JOANIE Infusion Sodium Chloride 1,000 mls @ 999 mls/hr 05/28/23 05:15 05/28/23 06:45 Ns IVCONT 05/28/23 06:15 Infused .Q1H1M JOANIE Infusion Vancomycin HCl 2,000 mg in 500 mls @ 250 mls/hr 05/28/23 05:34 05/28/23 08:31 Vancomycin/Ns IV 05/28/23 07:33 Infused ONCE ONE Infusion Ceftriaxone Sodium 1 gm/ 50 mls @ 100 mls/hr 05/28/23 05:34 05/28/23 06:25 Sodium Chloride IV 05/28/23 06:03 Infused ONCE ONE Infusion Methylprednisolone Sodium Succinate 125 mg 05/28/23 05:34 05/28/23 05:52 Methylprednisolone Sod Succ 125 Mg/2 Ml Vial IVPUSH 05/28/23 05:35 125 mg ONCE ONE Administration Medical Decision Making Medical Decision Making MDM Narrative: 62-year-old male with history of diabetes mellitus, hypertension, hyperlipidemia, hypothyroidism, lupus on hydrochloroquine, gout, chronic kidney disease, who was recently treated for right knee cellulitis prepatellar bursitis with cephalexin (05/13/2023) who presents emergency department for evaluation of a rash to his right arm which occurred after he was exposed to glue at work, who then developed lightheadedness and dizziness several hours later to the point where had a near syncopal episode 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 patient was found to be hypotensive by the paramedics with a blood pressure of 80/66 with a blood pressure of 105/68 in the emergency department with otherwise normal vital signs. The patient's review of systems did reveal a nonproductive cough times several days otherwise unremarkable with no reported fever or chills over the last several days. Patient's physical examination did reveal significant erythematous, nonblanchingrash to his right arm, small areas ofrash to his right chest, warm, erythematous rash to to his right the which is warm to touch in blanching with pressure with no significant joint effusion. Following evaluation was ordered: CBC, CMP, lactic acid, blood cultures x2, urinalysis, EKG, chest x-ray two-view 0552: Patient's examination is concerning for rash to his right arm, right chest and right knee. Patient was recently treated for right knee cellulitis and prepatellar bursitis with cephalexin. This time concerned that the patient may have recurrence of the cellulitis versus allergic reaction with anaphylaxis. given his diabetes mellitus, lupus treated with hydrochloroquine, the patient is immunocompromised therefore I will get him admitted treat him for both an allergic reaction and cellulitis with Solu-Medrol 125 mg IV, vancomycin 2 g IV and ceftriaxone 1 g IV. I will discuss admission with the covering hospitalist. I patient's EKG was unremarkable in 1st troponin was detectable but not elevated 4.3, I will repeat at 07:30 hours 0605: I did discuss admission over tiger text with the covering hospitalist, Dr. Alvarez accept the patient onto the hospitalist service. Patient will be admitted to the medical telemetry unit. 1327: Patient's troponins have been rising and have increased from 6.7, 32.5 and 205.1 at 12:26 hours. I did tiger text the covering hospitalist, Dr. Zamora to make sure that he is aware of these values. Patient was sent to the overflow unit and will either be brought back to the emergency department and placed on a monitored bed or taken to the medical telemetry unit since he cannot be in overflow unit with there is no monitoring. the patient did have a near syncopal episode most likely triggered by his hypotension this may have caused a type 2 injury to explain his elevated troponins. Differential Diagnosis Differential Diagnoses: The differential diagnosis associated with the presentation includes 0552: Differential diagnosis includes was not limited to allergic reaction with anaphylaxis and hypotension, cellulitis, hyperventilation syndrome with carpal pedal spasm, myocardial infarction myocardial ischemia Admission/Observation Consideration of admission/observation: Escalation of care including admission/observation considered Consult Healthcare Provider Management of the patient was discussed with: Hospitalist Lab Data MDM Lab Attestation statement: I reviewed the patient's lab results. my interpretation patient's laboratory evaluation is as follows: Elevated white blood count 08118, elevated BUN creatinine above his baseline at 31 and 1.74 with his baseline being 21 and 1.02 on 05/13/2023 this could be secondary to volume depletion or dehydration. Do not think that this is secondary to end-organ damage. High sensitive troponin I was detectable but not elevated at 4.3. LFTs were normal. Lipase was normal. Lactic acid was normal at 0.8. 05/28/23 04:34 05/28/23 04:34 Labs: Lab Results 05/28/23 05/28/23 Range/Units 04:34 05:45 WBC 13.8 H (4.8-10.8) X10*3/uL RBC 4.62 (4.60-5.80) X10*6/uL Hgb 14.2 (14.0-18.0) g/dl Hct 42.2 (42.0-52.0) % MCV 91.3 (80.0-98.0) fL MCH 30.7 (27.0-33.0) pg MCHC 33.6 (31.0-36.0) g/dl RDW 12.7 (11.0-16.0) % Plt Count 385 (160-400) X10*3/uL MPV 9.7 (9.4-12.4) fL Immature Gran % (Auto) 0.5 H (0.0-0.4) % Neut % (Auto) 80.5 H (45-73) % Lymph % (Auto) 9.3 L (20-40) % [place] % (Auto) 8.8 (2-11) % Eos % (Auto) 0.5 (0-4) % Baso % (Auto) 0.4 (0-2) % Lymph # (Auto) 1.3 (1.2-4.9) X10*3/uL [place] # (Auto) 1.2 (0.1-1.2) X10*3/uL Eos # (Auto) 0.1 (0.0-0.4) X10*3/uL Baso # (Auto) 0.1 (0.0-0.2) X10*3/uL Abs Immat Gran (auto) 0.07 H (0.00-0.03) X10*3/uL Absolute Neuts (auto) 11.1 H (2.0-8.3) x10*3/uL Absolute Nucleated RBC 0.000 (0.0-0.012) X10*3/uL Nucleated RBC % (auto) 0.0 (0.0-0.2) /100WBC Sodium 136 (135-145) mmol/L Potassium 4.2 (3.3-5.1) mmol/L Chloride 107 (96-108) mmol/L Carbon Dioxide 17 L (22-29) mmol/L Anion Gap 16 (12-20) BUN 31 H (9-16) mg/dL Creatinine 1.74 H (0.5-1.4) mg/dL Estim Creat Clear Calc 41.4 Estimated GFR 40 Random Glucose 157 H (60-115) mg/dL Lactic Acid 0.8 (0.5-2.0) mmol/L Calcium 9.2 D (8.4-10.2) mg/dL Total Bilirubin 0.4 (0.0-1.0) mg/dL Direct Bilirubin 0.2 (0.0-0.5) mg/dL AST 26 (5-37) U/L ALT 28 (0-40) U/L Alkaline Phosphatase 56 (39-117) U/L Troponin I High Sens 4.3 6.7 D (<3.5-35.0) ng/L C-Reactive Protein 0.33 (< or = 0.50) mg/dL Total Protein 6.9 (6.5-8.0) g/dL Albumin 3.8 (3.5-5.0) g/dL Lipase 16 (8-78) U/L Independent Interpretation I performed an independent interpretation of an: EKG and Plain X-Ray ( Two-view chest x-ray) Interpretation: My independent interpretation the patient's 12 EKG done at 04:28 hours is as follows: sinus rhythm with a rate of 75, prolonged TX interval of 200 milliseconds consistent with a first-degree AV block, no ST segment elevation, no ST segment depression, no significant T-wave abnormalities, no PACs, no PVCs. my independent interpretation patient's 2 you chest x-rays as follows: No acute disease, this correlates with the radiology reading. Radiology Impression Discussion of test interpretation with radiology: I have reviewed the radiologist's reading. Radiologist Impression: XR chest 2V IMPRESSION: No active cardiopulmonary disease. Dictated By: Santana Francisco External Record Review External record reviewed: Outpatient record ( Dr. Prabhakar office note) Chronic Conditions Patient?s care impacted by: Diabetes and Other ( lupus) Critical Care Time Critical Care Time Critical Care Time: Yes Total Critical Care Time: 45 Attestation: Critical Care: The patient was critically ill with a high probability of imminent or life threatening deterioration. I spent greater than 30 minutes of discontinuous time evaluating the patient,delivering critical care at the bedside, discussing and evaluating pertinent data with consultants. Critical care time does not include time spent performing separately billable procedures or teaching. Total time spent performing critical care was 45 minutes. Discharge Plan Discharge Clinical Impression: Acute hypotension Cellulitis Qualifiers: Site of cellulitis: extremity Site of cellulitis of extremity: lower extremity Laterality: right Qualified Code(s): L03.115 - Cellulitis of right lower limb Allergic reaction Qualifiers: Encounter type: initial encounter Qualified Code(s): T78.40XA - Allergy, unspecified, initial encounter Patient Disposition: Admitted As Inpatient
[2023-05-28] MEDS: 0.9 % Sodium Chloride 1,000 ML 999 ML IVCONT (05:46)
[2023-05-28] MEDS: cefTRIAXone sodium 1 GM in 0.9 % Sodium Chloride 50 ML IV (05:52)
[2023-05-28] MEDS: methylPREDNISolone Sod Succ 125 MG/2 ML VIAL IVPUSH (05:52)
--- NOTE | 2023-05-28 05:56 | MHC.EDTECH ---
Blood cultures and lactic drawn and sent to lab. Belongings list completed and patient has 657.00 Mcca[place]y patient refused safe.
--- NOTE | 2023-05-28 06:05 | MHC.EDTECH ---
Hourly rounds and vitals completed. Call chowdhury within reach
[2023-05-28 06:07] LABS: Lactic Acid 0.8 mmol/L (0.5-2.0)
--- NOTE | 2023-05-28 06:10 | P.HPHOSP_ITS ---
History of Present Illness Date of Service: 05/28/23 Chief Complaint: Dizziness This is a 62-year-old male with pertinent history of hypothyroidism, essential hypertension, mixed hyperlipidemia, [id number] diabetes mellitus, SLE on hydroxychloroquine who presents to the emergency department for evaluation of dizziness. 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 Patient states his arm got red and he got dizzy and lightheaded. Does admit similar allergic reaction to glue in the past. Also had an episode of diarrhea. No chest pain or palpitations. EMS noted that her blood pressure was low upon arrival. Patient also complaining of right knee swelling and erythema. He was given a course of Keflex by his tub wash operator for a cellulitis of the knee. No improvement noted with Keflex and it was changed to doxycycline 1 day prior to presentation. Patient denies fever, chills, chest discomfort, palpitations, shortness of breath, abdominal pain, changes in urinary or bowel habits In the emergency department, creatinine found to be elevated Review of Systems 2 Constitutional: Constitutional: Reports fatigue and Reports malaise ENT: Reports dizziness Cardiovascular: Cardiovascular: Reports no additional cardiovascular complaints Respiratory: Respiratory: Reports no additional respiratory complaints Gastrointestinal: Gastrointestinal: Reports no additional gastrointestinal complaints Genitourinary: Genitourinary: Reports no additional male genitourinary complaints Neurologic: Reports dizziness Endocrine: Endocrine: Reports fatigue [facility] Medical History Diabetes mellitus Hx of completed stroke Hyperlipidemia Long-term use of hydroxychloroquine CKD (chronic kidney disease) stage 3, GFR 30-59 ml/min Gout Hypothyroid Hypertension Systemic lupus erythematosus Social History Household Members: Spouse Alcohol intake: never Patient Tobacco Use Status: Never used Tobacco Smoked in Last 30 Days: No Use of substances other than those prescribed or required for medical reasons: No Advance Directives: No Advance Directives Information Provided: Yes Meds Allergies Allergy/AdvReac Type Severity Reaction Status Date / Time naproxen AdvReac Intermediate Rash Verified 05/26/23 09:25 Active Medications: Current Medications Sodium Chloride (Ns) 1,000 mls @ 999 mls/hr IVCONT .Q1H1M JOANIE Stop: 05/28/23 06:15 Last Admin: 05/28/23 05:46 Dose: 999 mls/hr Vancomycin HCl (Vancomycin/Ns) 2,000 mg in 500 mls @ 250 mls/hr IV ONCE ONE Stop: 05/28/23 07:33 Pharmacy Consult (Consult Rx Vancomycin Dosing) 1 each MISCELLANE DAILY PRN PRN Reason: Consult order Home Medications Medication Instructions Recorded Confirmed Last Taken Type folic acid 1 mg tablet 1 mg PO DAILY 02/08/23 05/13/23 Unknown History metformin 500 mg tablet,extended 1,000 mg PO DAILY 02/08/23 05/13/23 Unknown History release 24 hr polymyxin B sulfate 10,000 1 drp ophthalmic (eye) Q6H 02/08/23 05/13/23 02/08/23 History unit-trimethoprim 1 mg/mL eye drops empagliflozin 10 mg tablet 10 mg PO DAILY 05/13/23 05/13/23 Unknown History (Jardiance) tobramycin 0.3 %-dexamethasone 0.1 2 drp ophthalmic (eye) QID 05/13/23 05/13/23 Unknown History % eye drops,suspension Physical Exam 2 Vital Signs and Narrative: Vital Signs: Last Vital Signs Temp 97.7 F 05/28/23 06:04 Pulse 66 05/28/23 06:04 Resp 18 05/28/23 06:04 BP 122/89 05/28/23 06:04 Pulse Ox 96 05/28/23 06:04 O2 Del Method Room Air 05/28/23 06:04 BMI result Body Mass Index 25.1 Middle-aged male lying in bed in no distress Neck supple, no JVD Regular rate and rhythm, S1-S2 heard Regular breath sounds bilaterally, no wheezing or crackles appreciated Abdomen soft nontender, no guarding, no rigidity Patient is awake, alert and oriented to self, place, time and person ; no focal motor deficit Musculoskeletal: Right knee swelling, warmth and erythema noted Psych: Normal mood No pedal edema Results Labs 05/28/23 04:34 05/28/23 04:34 Labs: Laboratory Results - last 24 hr 05/28/23 05/28/23 04:34 05:45 MCV 91.3 MCH 30.7 MCHC 33.6 RDW 12.7 Plt Count 385 MPV 9.7 Immature Gran % (Auto) 0.5 H Neut % (Auto) 80.5 H Lymph % (Auto) 9.3 L [place] % (Auto) 8.8 Eos % (Auto) 0.5 Baso % (Auto) 0.4 Lymph # (Auto) 1.3 [place] # (Auto) 1.2 Eos # (Auto) 0.1 Baso # (Auto) 0.1 Abs Immat Gran (auto) 0.07 H Absolute Neuts (auto) 11.1 H Absolute Nucleated RBC 0.000 Nucleated RBC % (auto) 0.0 Anion Gap 16 Estim Creat Clear Calc 41.4 Estimated GFR 40 Random Glucose 157 H Lactic Acid 0.8 Calcium 9.2 D Total Bilirubin 0.4 Direct Bilirubin 0.2 AST 26 ALT 28 Alkaline Phosphatase 56 Total Protein 6.9 Albumin 3.8 Lipase 16 Assessment and Plan (1) Pre-syncope: Status: Acute (2) DEE DEE (acute kidney injury): Status: Acute (3) Cellulitis: Qualifiers: Laterality: right Site of cellulitis: extremity Site of cellulitis of extremity: lower extremity Qualified Code(s): L03.115 - Cellulitis of right lower limb Status: Acute Plan This is a 62-year-old male with pertinent history of hypothyroidism, essential hypertension, mixed hyperlipidemia, [id number]-lihxsjilu diabetes mellitus, SLE on hydroxychloroquine who presents to the emergency department for evaluation of dizziness. #. Presyncope, orthostatic. As evidenced by low blood pressure upon arrival. ?due to allergic reaction. Resuscitated with IV crystalloids. Repeat orthostatics. IV steroids and antihistaminics given in the ER #. Acute kidney injury on CKD. Monitor creatinine and urine output with crystalloid resuscitation. Avoid nephrotoxins and hold lisinopril #. Right knee cellulitis. Reviewed outpatient Rheumatology notes. Initiating empiric IV vancomycin as patient failed outpatient p.o. antibiotics. Monitor and consider imaging if no improvement #. Essential hypertension. Holding CASIMIRO-inhibitor as above #. Mixed hyperlipidemia. On statin #. SLE. On hydroxychloroquine #. Vkj-lcoiasj-cdroejjuo diabetes mellitus. Initiating Accu-Cheks with sliding scale insulin #. Hypothyroidism. On Synthroid Med rec pending DVT prophylaxis: Lovenox Admit as inpatient and will require two night minimum hospital stay for IV antibiotics Time Spent With Patient Time: Total time managing care of this patient today ____ minutes. Quality Stroke Does the patient have a stroke diagnosis?: No VTE Prior VTE?: No VTE Risk Level:: Medical - moderate - high VTE Device Contraindication: Treatment Not Indicated VTE Drug Contraindication: N/A - Med Ordered
[2023-05-28 06:20] LABS: Troponin-I High Sensitivity 6.7 ng/L (<3.5-35.0)
[2023-05-28] MEDS: vancomycin/NS 2,000 MG/500 ML PLAST..BAG 250 MG IV (06:28)
[2023-05-28] MEDS: diphenhydrAMINE HCL 50 MG/ML VIAL IVPUSH (06:41)
[2023-05-28] MEDS: Enoxaparin Sodium 40 MG/0.4 ML SYRINGE SUBCUT (06:42)
[2023-05-28 07:28] LABS: Appearance Urine Clear; Color Urine Yellow; Glucose Urine UA >=1000 mg/dL (Negative); Leukocyte Esterase Urine Negative (Negative); Nitrite Urine Negative (Negative); PH 5.5 (5.0-9.0); UMIC TRIGGER UACC YES; Urine Blood Negative (Negative); Urine Ketones Trace mg/dL (Negative); Urine Protein Trace mg/dL (Neg-Trace)
[2023-05-28 07:36] LABS: Bacteria Urine None Seen (None Seen); RBC Urine 0-2 /HPF (0-2); Squamous Epithelial Cell Urine 0-2 /HPF (0-2); WBC Urine 0-5 /HPF (0-5)
[2023-05-28 08:11] LABS: C Reactive Protein 0.33 mg/dL (< or = 0.50)
--- NOTE | 2023-05-28 08:26 | PHA.MEDREC ---
Pharmacy Consult ? Medication Reconciliation Pharmacy has completed the medication reconciliation. SPOKE TO PATIENT, HE KNEW MEDICATIONS.
[2023-05-28 08:28] LABS: Troponin-I High Sensitivity 32.5 ng/L (<3.5-35.0)
[2023-05-28 08:44] LABS: Glucose, Whole Blood 216 mg/dL (60-115)
[2023-05-28] MEDS: Insulin Lispro 100 UNIT/ML 3 ML VIAL SUBCUT ×3 (08:49→20:47)
[2023-05-28] MEDS: Lactated Ringers 1,000 ML 125 ML IVCONT ×2 (10:27→18:17)
[2023-05-28 12:13] LABS: Glucose, Whole Blood 133 mg/dL (60-115)
[2023-05-28 12:54] LABS: Creatinine Urine 41.99 mg/dL
[2023-05-28 12:59] LABS: Troponin-I High Sensitivity 205.1 ng/L (<3.5-35.0)
--- NOTE | 2023-05-28 13:00 | CA_ITS ---
Transthoracic Echocardiogram Patient (Last, First, Middle): eS Ruiz B Gender: Male Date of : 1960 Age: 62 Procedure Date: 05/28/2023 Procedure Type: Transthoracic Echocardiogram Location: ER Height: 172.72 cm Weight: 74.84 kg BSA: 1.88 m2 Heart Rate: 67 bpm BP: 116 / 69 mmHg Dental Treatment Coordinator: TO Referring MD: Oleg Zamora MD Symptoms: tn-I elevation Study Quality: Adequate ECG Rhythm: Sinus Conclusions: - The left ventricular systolic function is hyperdynamic. The calculated ejection fraction is 72% by biplane method. - Nonspecific thickening in the mitral valve leaflets. There is also suggestion of systolic anterior motion of the mitral chord. Doubt any vegetation. Findings Left Ventricle Normal left ventricular cavity size. The left ventricular systolic function is hyperdynamic. The calculated ejection fraction is 72% by biplane method. There is no evidence of regional wall motion abnormalities. Diastolic function is normal for age. There is mild septal and mild basal asymmetric hypertrophy. Right Ventricle Mildly increased right ventricular cavity size. There is normal right ventricular systolic function. Atria Both atria are normal in size. Aortic Valve There is a normal trileaflet aortic valve. There is mild calcification of the aortic valve. There is no aortic valve stenosis. There is no aortic valve regurgitation. Mitral Valve There is trace mitral valve regurgitation. There is no mitral valve stenosis. Nonspecific thickening in the mitral valve leaflets. There is also suggestion of systolic anterior motion of the mitral chord. Doubt any vegetation. Pulmonic Valve The pulmonic valve is likely normal. Tricuspid Valve Normal tricuspid valve structure. There is mild tricuspid valve regurgitation. There is no evidence of pulmonary hypertension. Great Vessels The asc aorta is normal in size. Venous The inferior vena cava is normal in size and collapses less than 50% with inspiration. Pericardium/Pleural There is no evidence of pericardial effusion. Prior Study Comparison No prior study available for comparison. Recommendations, Care & Conclusions No obvious valvular pathology seen on this study. Measurements 2D Linear Measurements IVSd: 1.40 0.6-0.9/0.6-1.0 cm LVIDd: 4.62 3.9-5.3/4.2-5.9 cm LVIDd Index: 2.46 2.4-3.2/2.2-3.1 cm/m2 LVIDs: 2.04 2.0-3.6 cm LVPWd: 0.91 0.7-1.1 cm LA Diam: 3.80 2.7-3.8/3.0-4.0 cm LAIDs Index: 2.02 1.5-2.3 cm/m2 LV Mass: 243.57 67-162/88-224 g LV Mass Index: 129.56 43-95/49-115 g/m2 LVOT Diam: 2.00 3.0+(-)1.3 cm 2D Systolic Function EF 4C: 70.30 >55% EF 2C: 72.50 >55% EF BiP: 71.80 >55% Mitral Valve MV VTI: 0.31 MV Pk Johnathon: 1.13 MV Mn Johnathon: 0.65 MV Pk Grad: 5.00 MV Mn Grad: 2.00 MV Pk E: 0.78 MV PK A: 0.62 MV Decel Time: 216.00 E/A: 1.20 E'Lateral: 10.60 E'Medial: 6.96 E/E' Med: 11.10 E/E' Lat: 7.30 PHT: 63.00 MVA PHT: 3.49 MVA Continuity: 3.32 Decel [place]: 3.59 Aortic Valve AoV Pk Johnathon: 1.52 AoV Mn Johnathon: 1.22 AoV VTI: 0.35 AoV Pk Grad: 9.00 Aov Mn Grad: 6.00 BRADY Cont.VTI: 2.89 LVOT LVOT Pk Johnathon: 1.33 LVOT Mn Johnathon: 0.95 LVOT VTI: 0.32 LVOT Pk Grad: 7.00 LVOT Mn Grad: 4.00 LVOT Diam: 2.00 LVOT Area: 3.14 Diastolic Function MV Pk E: 0.78 MV Pk A: 0.62 E/A: 1.20 E'Medial: 6.96 E/E' Med: 11.10 E' Laterial: 10.60 E/E' Lat: 7.30 Tricuspid Valve TR Pk Johnathon: 2.46 TR Pk Grad: 24.00 RA Press: 3.00 RVSP: 27.00 Great Vessels Aorta Sinus of Valsalva: 3.50 2.0-3.5 cm Ao Asc: 3.50 2.1-3.4 cm Updated in Other Vendor System with Status of Final Lon Lewis MD electronically signed on 05/28/2023 4:13:26 PM with status of Final
--- NOTE | 2023-05-28 13:01 | ECG_ITS ---
Test Reason : ELEVATED TROP Blood Pressure : / mmHG Vent. Rate : 074 BPM Atrial Rate : 074 BPM P-R Int : 216 ms QRS Dur : 106 ms QT Int : 410 ms P-R-T Axes : 061 -12 042 degrees QTc Int : 455 ms Sinus rhythm with 1st degree A-V block Otherwise normal ECG When compared with ECG of 28-MAY-2023 10:22, No significant change was found Referred By: Oleg Zamora Electronically Signed By:CHU DESIR
--- NOTE | 2023-05-28 13:19 | MHC.CM.PN ---
Addendum entered by Kaylah Matias 05/28/23 14:25: HCP completed, signed and witnessed. Original given to patient. Copy placed in chart. Original Note: Met with patient in regards to discharge planning. Patient lives with his , ambulates independently and had no services prior to coming to the hospital. No services anticipated to be needed because patient is not homebound. PCP verified as being at [facility]. Patient has received 3 Moderna and 1 Pfizer vaccine. Obs notice explained and signed. Patient's , Rose will transport patient home when medically stable. Continue to monitor for d/c needs.
--- NOTE | 2023-05-28 13:20 | PC.NURSE ---
Addendum entered by Ashlee Koch RN 05/28/23 13:22: NO EKG CHANGES NOTED. Original Note: CRITICAL TROP RECEIVED, COMMUNICATED TO HOSPITALIST. REPEAT EKG OBTAINED, SECOND PIV PLACED. PT CURRENTLY DENIES CP, SOB, APPEARS IN NAD AT THIS TIME.
--- NOTE | 2023-05-28 13:34 | PM.EVENT ---
Event Note Date of Service: 05/28/23 Event Note: Day hospitalist update S: Denies any lip/tongue/throat swelling or difficulty breathing. No chest pain or pressure. Some R knee swelling though improving; redness over kneecap. Rash of R forearm improving. O: VS- T 97.4, BP 116/69, P 80, R 16, SaO2 95 on RA Gen: in no acute distress HEENT: sclera anicteric, moist mucus membranes Neck: supple Lungs: clear to auscultation bilaterally Heart: regular rate and rhythm, no murmurs Abd: soft, non-tender, non-distended Ext: swelling over R prepatellar area with some erythema; no fluctuance Skin: R forearm with erythematous papules + macules Neuro: alert and oriented x3, no focal findings Psych: appropriate affect EKG: NSR, no ischemic changes A/P: d1 62yo M with SLE on hydroxychloroquine, DM2, HTN, HLD, hypothyroidism presenting with dizziness and hypotension after developing a contact dermatitis in reaction to industrial glue also recent R knee cellulitis found to have Tn-I elevation though no chest pain Tn-I elevation - telemetry, ASA/atorvastatin, TTE, Cardiology consultation. most likely demand from hypotension but at risk for ACS as well hypotension - suspect either allergic reaction to glue or toxicity of a volatile solvent in the glue [toluene? xylene?]; has resolved; continue IV fluids DEE DEE - suspect prerenal due to hypotensive episode; continue IV fluids and recheck BMP in AM: hold lisinopril R knee cellulitis - failed PO cephalexin, give IV vanco, check X-ray, follow BCx SLE - hydroxychloroquine DM2 - debra-dose lispro hypothyroidism - LT4 VTE ppx - LMWH dispo - eventual home In my clinical judgment, the patient requires continued hospitalization for the following reasons: elev Tn-I, DEE DEE Time Spent With Patient Time: Total time managing care of this patient today ____ minutes.
[2023-05-28] MEDS: Aspirin 81 MG TAB.CHEW 324 MG PO (13:39)
[2023-05-28 16:41] LABS: Glucose, Whole Blood 247 mg/dL (60-115)
[2023-05-28 19:59] LABS: Glucose, Whole Blood 192 mg/dL (60-115)
[2023-05-28] MEDS: Tobramycin/Dexamethasone Oph Oint 3.5 GMTUBE 0.5 INCH EYE-BOTH (20:47)
[2023-05-28] MEDS: Atorvastatin Calcium 80 MG TABLET PO (20:47)
[2023-05-28] MEDS: Hydroxychloroquine Sulfate 200 MG TABLET PO (20:47)
--- NOTE | 2023-05-29 | ECG_ITS ---
Test Reason : elev trop Blood Pressure : / mmHG Vent. Rate : 057 BPM Atrial Rate : 057 BPM P-R Int : 230 ms QRS Dur : 112 ms QT Int : 428 ms P-R-T Axes : 071 -14 033 degrees QTc Int : 416 ms Sinus bradycardia with 1st degree A-V block Otherwise normal ECG When compared with ECG of 28-MAY-2023 13:13, No significant change was found Referred By: Oleg Zamora Electronically Signed By:CHU DESIR
[2023-05-29 04:00] VITALS: BP 121/76; PULSE 74; RESP 18; TEMP 36.4; O2SAT 96
[2023-05-29] MEDS: Lactated Ringers 1,000 ML 125 ML IVCONT (04:51)
[2023-05-29] MEDS: Enoxaparin Sodium 40 MG/0.4 ML SYRINGE SUBCUT (06:29)
[2023-05-29] MEDS: vancomycin HCL 1,000 MG in 0.9 % Sodium Chloride 250 ML 270 MG IV (06:29)
[2023-05-29] MEDS: Levothyroxine Sodium 50 MCG TABLET PO (06:29)
[2023-05-29 07:14] LABS: Alanine Aminotransferase 22 U/L (0-40); Albumin Level 3.4 g/dL (3.5-5.0); Alkaline Phosphatase 53 U/L (39-117); Anion Gap 10 (12-20); Aspartate Amino Transferase 23 U/L (5-37); Bilirubin Total 0.5 mg/dL (0.0-1.0); Blood Urea Nitrogen 25 mg/dL (9-16); Calcium 9.4 mg/dL (8.4-10.2); Carbon Dioxide 20 mmol/L (22-29); Chloride 109 mmol/L (96-108); Creatinine Clr Calc Pharmacy 86.9; Estimated Glomerular Filt Rate > 60; Glucose Random 120 mg/dL (60-115); Potassium 3.8 mmol/L (3.3-5.1); Sodium 135 mmol/L (135-145); Total Protein 6.3 g/dL (6.5-8.0)
[2023-05-29 07:17] LABS: Erythrocyte Sedimentation Rate 8 MM/HR (0-15)
[2023-05-29 07:58] VITALS: BP 133/79; PULSE 55; RESP 16; TEMP 36.3; O2SAT 96
[2023-05-29 08:06] LABS: Glucose, Whole Blood 123 mg/dL (60-115)
[2023-05-29] MEDS: Aspirin 81 MG TAB.CHEW PO (08:51)
[2023-05-29] MEDS: Folic Acid 1 MG TABLET PO (08:51)
[2023-05-29] MEDS: 0.9 % Sodium Chloride Flush 3 ML SYRINGE IVFLUSH (08:51)
[2023-05-29] MEDS: Hydroxychloroquine Sulfate 200 MG TABLET PO (08:51)
[2023-05-29] MEDS: Tobramycin/Dexamethasone Oph Oint 3.5 GMTUBE 0.5 INCH EYE-BOTH ×2 (08:53→13:22)
--- NOTE | 2023-05-29 09:33 | P.CONCA_ITS ---
History of Present Illness History of Present Illness Date of Service: 05/29/23 Chief complaint: Dizziness Narrative: This is a cardiology consultation regarding high troponin levels. Patient has a history of SLE on hydroxychloroquine, diabetes, hypertension, dyslipidemia and he came for dizziness. 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 Apparently he was not wearing his usual protective glove when he changed the glue container and the arm got red and in that context was some dizziness and lightheadedness. However, there was no chest pain. Lowish blood pressure upon EMS arrival. In-hospital blood pressures however are well within normal range. Subsequently brought to the ER and evaluated and admitted. Serial troponin levels have been checked and the levels include 4.3, 6.7, 32.5, 205 and 1570. Hence overall, there has been as significant rise in troponins but he still has no chest pain. Review of Systems 2 Review of Systems: Yes all other systems are reviewed and are negative Constitutional: Constitutional: Reports as per HPI and Reports no additional constitutional complaints Eyes: Eyes: Reports as per HPI and Denies no additional eye complaints ENT: Denies system reviewed and no additional complaints, except as documented and Reports as per HPI Cardiovascular: Cardiovascular: Reports as per HPI, Reports no additional cardiovascular complaints, Denies acrocyanosis, Denies cool extremities, Denies chest pain, Denies leg edema, Denies lightheadedness, Denies palpitations and Denies dyspnea Respiratory: Respiratory: Reports as per HPI, Denies no additional respiratory complaints and Denies dyspnea Gastrointestinal: Gastrointestinal: Reports as per HPI and Denies no additional gastrointestinal complaints Genitourinary: Genitourinary: Reports no additional male genitourinary complaints and Reports as per HPI Musculoskeletal: Musculoskeletal: Reports no additional musculoskeletal complaints and Reports as per HPI Integumentary/Breasts: Skin/Breast: Reports system reviewed and no additional complaints, except as docu Neurologic: Reports system reviewed and no additional complaints, except as documented and Reports as per HPI Psychiatric: Psychiatric: Reports no additional psychiatric complaints and Reports as per HPI Endocrine: Endocrine: Reports no additional endocrine complaints, Reports as per HPI and Denies palpitations Hematologic/Lymphatic: Hematologic/Lymphatic: Reports no additional hematologic/lymphatic complaints and Reports as per HPI Allergic/Immunologic: Allergic/Immunologic: Reports no additional allergic/immunologic complaints and Reports as per HPI [facility] Past Medical History Medical History Diabetes mellitus Hx of completed stroke Hyperlipidemia Long-term use of hydroxychloroquine CKD (chronic kidney disease) stage 3, GFR 30-59 ml/min Gout Hypothyroid Hypertension Systemic lupus erythematosus Social History Social History Household Members: Spouse Housing: House Do you presently have visiting nurse or other home services: No Alcohol intake: never Patient Tobacco Use Status: Never used Tobacco service: No Meds Allergies Allergy/AdvReac Type Severity Reaction Status Date / Time naproxen AdvReac Intermediate Rash Verified 05/26/23 09:25 Active Medications: Current Medications Acetaminophen (Acetaminophen 325 Mg Tablet) 650 mg PO Q6H PRN PRN Reason: Pain, Mild (Pain Scale 1-3) Aspirin (Aspirin 81 Mg Tab.Chew) 81 mg PO DAILY JOANIE Last Admin: 05/29/23 08:51 Dose: 81 mg Atorvastatin Calcium (Atorvastatin Calcium 80 Mg Tablet) 80 mg PO BEDTIME JOANIE Last Admin: 05/28/23 20:47 Dose: 80 mg Dextrose (Dextrose 50 % 25 Gm/50 Ml Syringe) 25 gm IVPUSH Q15M PRN; Protocol PRN Reason: per Hypoglycemia Standing Ord. Enoxaparin Sodium (Enoxaparin Sodium 40 Mg/0.4 Ml Syringe) 40 mg SUBCUT Q24H JOANIE Last Admin: 05/29/23 06:29 Dose: 40 mg Folic Acid (Folic Acid 1 Mg Tablet) 1 mg PO DAILY JOANIE Last Admin: 05/29/23 08:51 Dose: 1 mg Glucose (Glucose Gel 15 Gm Gel..Gram.) 15 gm PO Q15M PRN; Protocol PRN Reason: per Hypoglycemia Standing Ord. Hydroxychloroquine Sulfate (Hydroxychloroquine Sulfate 200 Mg Tablet) 200 mg PO BID JOANIE Last Admin: 05/29/23 08:51 Dose: 200 mg Vancomycin HCl 1,000 mg/ (Sodium Chloride) 270 mls @ 270 mls/hr IV Q24H JOANIE Last Infusion: 05/29/23 07:30 Dose: Infused Insulin Human Lispro (Insulin Lispro 100 Unit/Ml 3 Ml Vial) 0 unit SUBCUT QIDACHS JOANIE; Protocol Last Admin: 05/29/23 08:10 Dose: Not Given Levothyroxine Sodium (Levothyroxine Sodium 50 Mcg Tablet) 50 mcg PO DAILY@0600 [facility] Last Admin: 05/29/23 06:29 Dose: 50 mcg Melatonin (Melatonin 3 Mg Tablet) 6 mg PO BEDTIME PRN PRN Reason: Insomnia Ondansetron HCl (Ondansetron Hcl 4 Mg/2 Ml Vial) 4 mg IVPUSH Q8H PRN PRN Reason: Nausea and Vomiting Pharmacy Consult (Consult Rx Vancomycin Dosing) 1 each MISCELLANE DAILY PRN PRN Reason: Consult order Sodium Chloride (0.9 % Sodium Chloride Flush 3 Ml Syringe) 3 ml IVFLUSH QSHIFT [facility] Last Admin: 05/29/23 08:51 Dose: 3 ml Tobramycin/Dexamethasone (Tobramycin/Dexamethasone Oph Oint 3.5 Gmtube) 0.5 inch EYE-BOTH QID [facility] Last Admin: 05/29/23 08:53 Dose: 0.5 inch Home Medications Medication Instructions Recorded Confirmed Last Taken Type folic acid 1 mg tablet 1 mg PO DAILY 02/08/23 05/28/23 05/27/23 History empagliflozin 10 mg tablet 10 mg PO DAILY 05/13/23 05/28/23 05/27/23 History (Jardiance) tobramycin 0.3 %-dexamethasone 0.1 2 drp ophthalmic (eye) QID 05/13/23 05/28/23 05/27/23 History % eye drops,suspension acetaminophen 650 mg 1,300 mg PO Q8H PRN Pain 05/28/23 05/28/23 05/27/23 History tablet,extended release Physical Exam 2 Vital Signs: Vital Signs: Last Vital Signs Temp 97.4 F 05/29/23 07:58 Pulse 55 05/29/23 07:58 Resp 16 05/29/23 07:58 BP 133/79 05/29/23 07:58 Pulse Ox 96 05/29/23 07:58 O2 Del Method Room Air 05/29/23 07:58 BMI result Body Mass Index 25.1 Const: General: comfortable and no acute distress O rientation/consciousness: patient oriented x3 HEENT: Other: Unremarkable Head: Yes normal to inspection Neck: Neck: Yes normal visual inspection Chest: Chest palpation & inspection: normal inspection of the chest Resp: Auscultation: clear to auscultation bilaterally Cardio: Palpation: normal PMI Heart sounds: S1 normal heart sound present, S2 normal heart sound present, no gallops, no murmurs and no rubs GI: Palpation (GI): Soft to palpation Back/Spine/Pelvis: Other: unremarkable Skin: General skin exam: no rashes or lesions noted Neuro: General: patient oriented x3 Extrem: General: Yes normal to inspection Psych: Mental Status: mental status grossly normal Objective Labs and Meds 05/29/23 10:07 05/29/23 05:34 Lab results: Laboratory Results - last 24 hr 05/28/23 05/28/23 05/28/23 12:10 12:20 12:26 ESR Sodium Potassium Chloride Carbon Dioxide Anion Gap BUN Creatinine Estim Creat Clear Calc Estimated GFR POC Glucose 133 H Random Glucose Calcium Total Bilirubin AST ALT Alkaline Phosphatase Troponin I High Sens 205.1 H* D Total Protein Albumin Ur Random Sodium 90.0 Urine Creatinine 41.99 05/28/23 05/28/23 05/29/23 16:32 19:53 05:34 ESR 8 Sodium 135 Potassium 3.8 Chloride 109 H Carbon Dioxide 20 L Anion Gap 10 L BUN 25 H Creatinine 0.83 Estim Creat Clear Calc 86.9 Estimated GFR > 60 POC Glucose 247 H 192 H Random Glucose 120 H Calcium 9.4 Total Bilirubin 0.5 AST 23 ALT 22 Alkaline Phosphatase 53 Troponin I High Sens 1570.0 H* D Total Protein 6.3 L Albumin 3.4 L Ur Random Sodium Urine Creatinine 05/29/23 08:02 ESR Sodium Potassium Chloride Carbon Dioxide Anion Gap BUN Creatinine Estim Creat Clear Calc Estimated GFR POC Glucose 123 H Random Glucose Calcium Total Bilirubin AST ALT Alkaline Phosphatase Troponin I High Sens Total Protein Albumin Ur Random Sodium Urine Creatinine ECG Interpretation: EKG shows sinus bradycardia at 57/Min; NM prolongation to 230 millisecond; normal corrected QT. other EKGs are also similar but the NM interval in those EKGs are slightly lower. Imaging Radiologist's impression: Impressions Knee X-Ray 05/28/23 10:15 IMPRESSION: Anterior soft tissue swelling. No joint effusion. Assessment and Plan (1) NSTEMI (non-ST elevated myocardial infarction): Status: Acute Plan Baseline EKG is unremarkable. Troponin levels are as below- 4.3; 6.7; 32.5; 205; 1570. Hence overall, there seems to be a substantial rise but patient himself does not have any clear chest pain. Echocardiogram with hyperdynamic LVEF and no overt wall motion abnormalities. There is a nonspecific thickening of the mitral valves. Not clear if it is related to the lupus/marantic findings. Chordal ALEXUS. He does have numerous risk factors for coronary disease including diabetes on insulin, hypertension, dyslipidemia, autoimmune disease. Reasonable to pursue diagnostic catheterization to assess anatomy. Discussed with patient as well as Dr. Zamora from hospitalist service. Patient agrees. We will transfer to [facility] for procedure. In the interim, continue IV heparin, aspirin, beta-blockers and statins. Time Spent With Patient Time: Total time managing care of this patient today ____ minutes. Procedures Date of Service Date of Service: 05/29/23
[2023-05-29] MEDS: Metoprolol Tartrate 25 MG TABLET PO (10:11)
[2023-05-29 10:14] VITALS: BP 155/90; PULSE 65
[2023-05-29 10:16] VITALS: BMI 26.2
[2023-05-29 10:31] LABS: Hematocrit 37.9 % (42.0-52.0); Hemoglobin 12.7 g/dl (14.0-18.0); Mean Corpuscular HGB Conc 33.5 g/dl (31.0-36.0); Mean Corpuscular Hemoglobin 30.8 pg (27.0-33.0); Mean Platelet Volume 10.9 fL (9.4-12.4); Platelet Count 293 X10*3/uL (160-400); Red Blood Count 4.12 X10*6/uL (4.60-5.80); Red Cell Distribution Width 12.7 % (11.0-16.0); White Blood Count 11.2 X10*3/uL (4.8-10.8)
[2023-05-29] MEDS: Heparin Sodium,Porcine/1/2NS 25,000 UNIT/250 ML IV.SOLN 9.37 UNIT IVCONT (10:40)
--- NOTE | 2023-05-29 10:40 | PM.DS ---
DS: Providers Provider Date of Service: 05/29/23 Date of admission: 05/28/23 06:08 Date of discharge: 05/29/23 Primary care physician: Susy Alvarez MD Consults: 05/28/23 13:22 Consult to Cardiology Routine Consulting Provider: [facility] Reason for consultation: tn-I elevation DS: Diagnosis Discharge Diagnosis (1) Pre-syncope: Status: Acute (2) DEE DEE (acute kidney injury): Status: Acute (3) Cellulitis: Status: Acute (4) Acute hypotension: Status: Acute (5) Allergic reaction: Status: Acute (6) NSTEMI (non-ST elevated myocardial infarction): Status: Acute (7) Contact dermatitis: Status: Acute (8) Solvent exposure: Status: Acute DS: Summary Hospital Course Hospital Course: from admission H+P by hospitalist Ana Alvarez MD, 05/28/23: This is a 62-year-old male with pertinent history of hypothyroidism, essential hypertension, mixed hyperlipidemia, qsh-[id number] diabetes mellitus, SLE on hydroxychloroquine who presents to the emergency department for evaluation of dizziness. 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 Patient states his arm got red and he got dizzy and lightheaded. Does admit similar allergic reaction to glue in the past. Also had an episode of diarrhea. No chest pain or palpitations. EMS noted that her blood pressure was low upon arrival. Patient also complaining of right knee swelling and erythema. He was given a course of Keflex by his functional architect for a cellulitis of the knee. No improvement noted with Keflex and it was changed to doxycycline 1 day prior to presentation. Patient denies fever, chills, chest discomfort, palpitations, shortness of breath, abdominal pain, changes in urinary or bowel habits In the emergency department, creatinine found to be elevated Mr Ruiz is a 62yo M with SLE on hydroxychloroquine, DM2, HTN, HLD, and hypothyroidism who presented with dizziness and hypotension [EMS measured BP of 80/66] after developing a contact dermatitis in reaction to industrial glue [ [employer] ]; also recent R knee prepatellar cellulitis. He was admitted for DEE DEE and found to have elevated troponins, though no chest pain. NSTEMI - High-sensitivity troponin-I climbed markedly from 4.3 to 1570. Cardiology was consulted. No ischemic symptoms or EKG changes. TTE without WMAs. However, given risk factors of age, sex, DM2, HLD, and HTN suspicion for CAD remains and he was started on aspirin, atorvastatin, heparin drip, and metoprolol, then transferred to [facility] for cardiac catheterization. hypotension - Suspect either allergic reaction to glue or acute toxicity of a volatile solvent in the glue [toluene? xylene?]. Resolved with IV fluid hydration and removal from the exposure. DEE DEE - Suspect prerenal due to hypotensive episode; resolved with IV fluids and holding lisinopril R knee cellulitis - Persistent despite PO cephalexin; given IV vancomycin. Cultures negative to date. Cellulitis improved markedly. Changed to doxycycline on transfer. Time Spent with Patient Time attestation: Total time managing care of this patient today __35__ minutes. Discharge coordination time: Greater than 30 minutes Quality: Safe Use of Opioids Does Pt have an Active Cancer Diagnosis on the Problem List?: No Quality: Stroke Does the patient have a stroke diagnosis?: No Physical Exam Vital Signs: Vital Signs: Last Vital Signs Temp 97.4 F 05/29/23 07:58 Pulse 65 05/29/23 10:14 Resp 16 05/29/23 07:58 BP 155/90 H 05/29/23 10:14 Pulse Ox 96 05/29/23 07:58 O2 Del Method Room Air 05/29/23 07:58 BMI result Body Mass Index 26.2 Gen: in no acute distress HEENT: sclera anicteric, moist mucus membranes Neck: supple Lungs: clear to auscultation bilaterally Heart: regular rate and rhythm, no murmurs Abd: soft, non-tender, non-distended Ext: mild swelling over R prepatellar area with very minimal erythema; no fluctuance Skin: R forearm rash resolved Neuro: alert and oriented x3, no focal findings Psych: appropriate affect DS: Data Data Completed and Pending Completed studies during hospitalization [Text1]: Laboratory Results WBC 11.2 X10*3/uL (4.8-10.8) H 05/29/23 10:07 RBC 4.12 X10*6/uL (4.60-5.80) L 05/29/23 10:07 Hgb 12.7 g/dl (14.0-18.0) L 05/29/23 10:07 Hct 37.9 % (42.0-52.0) L 05/29/23 10:07 MCV 92.0 fL (80.0-98.0) 05/29/23 10:07 MCH 30.8 pg (27.0-33.0) 05/29/23 10:07 MCHC 33.5 g/dl (31.0-36.0) 05/29/23 10:07 RDW 12.7 % (11.0-16.0) 05/29/23 10:07 Plt Count 293 X10*3/uL (160-400) 05/29/23 10:07 MPV 10.9 fL (9.4-12.4) 05/29/23 10:07 Immature Gran % (Auto) 0.5 % (0.0-0.4) H 05/28/23 04:34 Neut % (Auto) 80.5 % (45-73) H 05/28/23 04:34 Lymph % (Auto) 9.3 % (20-40) L 05/28/23 04:34 [place] % (Auto) 8.8 % (2-11) 05/28/23 04:34 Eos % (Auto) 0.5 % (0-4) 05/28/23 04:34 Baso % (Auto) 0.4 % (0-2) 05/28/23 04:34 Lymph # (Auto) 1.3 X10*3/uL (1.2-4.9) 05/28/23 04:34 [place] # (Auto) 1.2 X10*3/uL (0.1-1.2) 05/28/23 04:34 Eos # (Auto) 0.1 X10*3/uL (0.0-0.4) 05/28/23 04:34 Baso # (Auto) 0.1 X10*3/uL (0.0-0.2) 05/28/23 04:34 Abs Immat Gran (auto) 0.07 X10*3/uL (0.00-0.03) H 05/28/23 04:34 Absolute Neuts (auto) 11.1 x10*3/uL (2.0-8.3) H 05/28/23 04:34 Absolute Nucleated RBC 0.000 X10*3/uL (0.0-0.012) 05/29/23 10:07 Nucleated RBC % (auto) 0.0 /100WBC (0.0-0.2) 05/29/23 10:07 ESR 8 MM/HR (0-15) 05/29/23 05:34 PT 11.7 SEC (11.1-13.3) 05/29/23 10:07 INR 1.0 (0.9-1.1) 05/29/23 10:07 aPTT Heparin Protocol 30.6 SEC (53-77.9) L 05/29/23 10:07 Sodium 135 mmol/L (135-145) 05/29/23 05:34 Potassium 3.8 mmol/L (3.3-5.1) 05/29/23 05:34 Chloride 109 mmol/L (96-108) H 05/29/23 05:34 Carbon Dioxide 20 mmol/L (22-29) L 05/29/23 05:34 Anion Gap 10 (12-20) L 05/29/23 05:34 BUN 25 mg/dL (9-16) H 05/29/23 05:34 Creatinine 0.83 mg/dL (0.5-1.4) 05/29/23 05:34 Estim Creat Clear Calc 86.9 05/29/23 05:34 Estimated GFR > 60 05/29/23 05:34 POC Glucose 123 mg/dL (60-115) H 05/29/23 08:02 Random Glucose 120 mg/dL (60-115) H 05/29/23 05:34 Lactic Acid 0.8 mmol/L (0.5-2.0) 05/28/23 05:45 Calcium 9.4 mg/dL (8.4-10.2) 05/29/23 05:34 Total Bilirubin 0.5 mg/dL (0.0-1.0) 05/29/23 05:34 Direct Bilirubin 0.2 mg/dL (0.0-0.5) 05/28/23 04:34 AST 23 U/L (5-37) 05/29/23 05:34 ALT 22 U/L (0-40) 05/29/23 05:34 Alkaline Phosphatase 53 U/L (39-117) 05/29/23 05:34 Troponin I High Sens 1570.0 ng/L (<3.5-35.0) H* D 05/29/23 05:34 C-Reactive Protein 0.33 mg/dL (< or = 0.50) 05/28/23 04:34 Total Protein 6.3 g/dL (6.5-8.0) L 05/29/23 05:34 Albumin 3.4 g/dL (3.5-5.0) L 05/29/23 05:34 Lipase 16 U/L (8-78) 05/28/23 04:34 Urine Color Yellow 05/28/23 07:18 Urine Appearance Clear 05/28/23 07:18 Urine pH 5.5 (5.0-9.0) 05/28/23 07:18 Ur Specific [place] 1.020 (1.005-1.025) 05/28/23 07:18 Urine Protein Trace mg/dL (Neg-Trace) 05/28/23 07:18 Urine Glucose (UA) >=1000 mg/dL (Negative) H 05/28/23 07:18 Urine Ketones Trace mg/dL (Negative) 05/28/23 07:18 Urine Blood Negative (Negative) 05/28/23 07:18 Urine Nitrite Negative (Negative) 05/28/23 07:18 Ur Leukocyte Esterase Negative (Negative) 05/28/23 07:18 Urine RBC 0-2 /HPF (0-2) 05/28/23 07:18 Urine WBC 0-5 /HPF (0-5) 05/28/23 07:18 Ur Squamous Epith Cells 0-2 /HPF (0-2) 05/28/23 07:18 Urine Bacteria None Seen (None Seen) 05/28/23 07:18 Hyaline Casts 3-5 /LPF (0-2) 05/28/23 07:18 Ur Random Sodium 90.0 mmol/L 05/28/23 12:26 Urine Creatinine 41.99 mg/dL 05/28/23 12:20 Impressions Chest X-Ray 05/28/23 06:00 IMPRESSION: No active cardiopulmonary disease. Knee X-Ray 05/28/23 10:15 IMPRESSION: Anterior soft tissue swelling. No joint effusion. TTE 9/13/23 - The left ventricular systolic function is hyperdynamic. The calculated ejection fraction is 72% by biplane method. - Nonspecific thickening in the mitral valve leaflets. There is also suggestion of systolic anterior motion of the mitral chord. Doubt any vegetation. Discharge Plan Discharge Patient Disposition: [facility] Discharge Diagnosis: NSTEMI, hypotension, DEE DEE, cellulitis Referrals: Susy Alvarez MD [Primary Care Provider] - 1 Week Discharge Medications: New atorvastatin 80 mg Tablet 80 mg PO BEDTIME Qty: 1 0RF aspirin 81 mg Tablet,Chewable 81 mg PO DAILY Qty: 1 0RF insulin lispro [Humalog U-100 Insulin] 100 unit/mL Solution See Protocol subcut QIDACHS Qty: 1 0RF Protocol: Insulin Correction Scale Less than or equal to 110 ---- Give (units): 0 111 to 150 Give (units): 0 151 to 200 Give (units): 2 201 to 250 Give (units): 4 251 to 300 Give (units): 6 301 to 350 Give (units): 8 Greater than 350 Give (units): 10 Call if Blood Glucose > : 350 heparin (porcine) 5,000 unit/mL Solution 6,200 unit IVPUSH PROTOCOL BOLUS PRN (Reason: 80 Unit/Kg - Heparin Protocol) Qty: 1 0RF heparin (porcine) 5,000 unit/mL Solution 6,200 unit IVPUSH PROTOCOL BOLUS PRN (Reason: 80 Unit/Kg - Heparin Protocol) Qty: 1 0RF heparin (porcine) 5,000 unit/mL Solution 3,100 unit IVPUSH PROTOCOL BOLUS PRN (Reason: 40 unit/kg - Heparin Protocol) Qty: 1 0RF metoprolol tartrate 25 mg Tablet 25 mg PO BID Qty: 1 0RF Protocol: Hold for SBP/HR < HOLD for SBP < : 90 HOLD for HR < : 60 heparin(porcine) in 0.45% NaCl 25,000 unit/250 mL Parenteral Solution 25,000 unit continuous IV infusion .Q0M Qty: 1 0RF Continued folic acid 1 mg tablet 1 mg PO DAILY acetaminophen 650 mg Tablet Extended Release 1,300 mg PO Q8H PRN (Reason: Pain) hydroxychloroquine 200 mg tablet 200 mg PO BID Qty: 60 6RF allopurinol 100 mg tablet 200 mg PO DAILY Qty: 60 6RF levothyroxine 50 mcg tablet 50 mcg PO DAILY Qty: 30 5RF tobramycin-dexamethasone 0.3-0.1 % drops,suspension 2 drp ophthalmic (eye) QID Jardiance 10 mg tablet 10 mg PO DAILY doxycycline hyclate 100 mg capsule 100 mg PO BID Qty: 20 0RF Discontinued metformin 500 mg tablet extended release 24 hr 1,000 mg PO DAILY simvastatin 20 mg tablet 20 mg PO BEDTIME lisinopril 10 mg tablet 10 mg PO DAILY Qty: 30 5RF Discharge Orders: Discharge Order (Routine); Ordered 05/29/23 Ordered By: Oleg Zamora Diet: Diabetic diet Activity on Discharge: As tolerated Stand Alone Forms: Patient Portal Discharge page Care Plan Goals: diagnosis and management of coronary syndrome Health Concerns: NSTEMI, hypotension, DEE DEE, cellulitis - transfer to [facility] for cardiac catheterization; on heparin drip; started metoprolol, aspirin, and atorvastatin - continue doxycycline for prepatellar cellulitis - DEE DEE resolved - follow up with Cardiology and Primary Care after discharge from [facility] Plan of Treatment: as above Assessment: See Discharge Summary.
[2023-05-29 10:41] LABS: Prothrombin Time 11.7 SEC (11.1-13.3)
[2023-05-29 10:44] LABS: PTT Heparin Drip 30.6 SEC (53-77.9)
--- NOTE | 2023-05-29 10:46 | MHC.CM.PN ---
Per MD rounds Patient [place] [facility] [place]. Patient will transport via [facility]. Pending notification of Bed availability + room number.
[2023-05-29 11:13] LABS: Glucose, Whole Blood 139 mg/dL (60-115)
[2023-05-29] MEDS: 0.9 % Sodium Chloride 1,000 ML 100 ML IVCONT (12:01)
[2023-05-29 12:32] LABS: COVID-19 Test Negative (Negative); IDNOW Serial# BCCEAD1C
== END 2023-05-29 14:20 | disposition short-term general hospital (02) ==
LOC: HO.ED 06:01 → HO.EDOVER 06:13 → HO.S3 13:49
PROVIDERS: Admitting Provider Student in an Organized Health Care Education/Training Program; Emergency Provider Emergency Medicine Emergency Medical Services; PCP Internal Medicine; Visit Provider Family Medicine
DX: I21.4 Non-ST elevation (NSTEMI) myocardial infarction (principal); N17.9 Acute kidney failure, unspecified; N18.30 Chronic kidney disease, stage 3 unspecified; I12.9 Hypertensive chronic kidney disease with stage 1 through stage 4 chronic kidney disease, or unspecified chronic kidney disease; L03.115 Cellulitis of right lower limb; R55 Syncope and collapse; E03.9 Hypothyroidism, unspecified; E78.2 Mixed hyperlipidemia; E11.9 Type 2 diabetes mellitus without complications; M32.9 Systemic lupus erythematosus, unspecified; R19.7 Diarrhea, unspecified; Z79.899 Other long term (current) drug therapy; M25.461 Effusion, right knee
CPT/HCPCS: 36415; 71046; 73560; 80048; 80053; 80076; 81001; 82570; 82947; 83605; 83690; 84300; 84484; 85025; 85027; 85610; 85652; 85730; 86140; 87040; 87635; 93005; 93306; 96361; 96365; 96366; 96367; 96372; 96375; 99221; 99285; J0696; J1200; J1643; J1650; J2930; J3370; Q9957

== ENCOUNTER 2023-05-28 06:08 | Outpatient (BNV) | payer OTHER, SELFPAY | END 2023-05-28 13:00 | PROVIDERS: Admitting Provider Student in an Organized Health Care Education/Training Program; Emergency Provider Emergency Medicine Emergency Medical Services; PCP Internal Medicine; Visit Provider Internal Medicine | DX: I36.1 Nonrheumatic tricuspid (valve) insufficiency (principal); I35.8 Other nonrheumatic aortic valve disorders | CPT/HCPCS: 93306 ==

== ENCOUNTER → 2023-05-28 06:08 | Outpatient (BNV) | payer OTHER, SELFPAY | PROVIDERS: Admitting Provider Student in an Organized Health Care Education/Training Program; Emergency Provider Emergency Medicine Emergency Medical Services; Visit Provider Student in an Organized Health Care Education/Training Program | DX: R55 Syncope and collapse (principal); N17.9 Acute kidney failure, unspecified; L03.115 Cellulitis of right lower limb; I95.9 Hypotension, unspecified; T78.40XA Allergy, unspecified, initial encounter; I21.4 Non-ST elevation (NSTEMI) myocardial infarction; L25.9 Unspecified contact dermatitis, unspecified cause; Z77.29 Contact with and (suspected) exposure to other hazardous substances | CPT/HCPCS: 99223; 99239; 99499 ==

== ENCOUNTER → 2023-05-28 06:08 | Outpatient (BNV) | payer OTHER, SELFPAY | PROVIDERS: Admitting Provider Student in an Organized Health Care Education/Training Program; Emergency Provider Emergency Medicine Emergency Medical Services; PCP Internal Medicine; Visit Provider Internal Medicine | DX: I21.4 Non-ST elevation (NSTEMI) myocardial infarction (principal) | CPT/HCPCS: 99222 ==

== ENCOUNTER 2023-12-12 14:53 | Outpatient (AMB) | payer SELFPAY ==
--- NOTE | 2023-12-12 15:13 | MHC.OFFVIS ---
Intake Vital Signs 12/12/23 15:15 Height 5 ft 8 in BP 97/64 Blood Pressure Location Rt brachial Position Sitting Pulse 64 Pulse Source Pulse Oximeter Temp 98.1 F Temp Source Skin Pulse Oximetry (%) 97 Oxygen Delivery Method Room Air Intake Visit Reasons: SLE Intake Note: Patient last seen 05/26/[address] Prabhakar, presents today for SLE follow up. Financial Manager Required: No Accompanied by: Self / Same As Patient Allergies naproxen Adverse Reaction (Intermediate, Verified 12/12/23 15:29) Rash Medication List - Last Reconciled 12/12/23 by LISA Galvan-BC acetaminophen ER 1,300 mg PO Q8H PRN allopurinol 200 mg (2 x 100 mg) PO DAILY empagliflozin (Jardiance) 10 mg PO DAILY folic acid 1 mg PO DAILY hydroxychloroquine 200 mg PO BID levothyroxine 50 mcg PO DAILY lisinopril 10 mg PO DAILY metformin ER 500 mg PO BID HPI HPI Comments History of Present Illness Details Mr. Saez 63-year-old male returns for follow-up of sellar Lantus and parapatellar bursitis in his right knee. He also has gout and says he has been treated for lupus. 05/26/2023 Dr. Prabhakar: The patient returns today for evaluation of the cellulitis and possible prepatellar bursitis in his right knee. He finished off the course of Keflex. He says the pain is completely gone. He has been able to bicycle to work once again. However there still is some redness anteriorly in the prepatellar region. It is not tender. April 2023 Aki: The patient presents with complaints of pain and swelling in the right knee. This developed about 6 days ago. He noted a scab over the anterior knee the a day before that. He has been able to bicycle to work but notes more pain with standing or walking. He has not had any fever or chills. He does have a history of gout but has been faithful with taking allopurinol 200 mg daily for number of years now. He also of course has SLE currently on hydroxychloroquine 200 mg twice a day. He is on lisinopril for hypertension and recently had Jardiance added to his metformin for his type 2 diabetes. At the end of January he developed inflammation and pain in the eyes. I do not have the hospital record but it sounds like there was concern about a cellulitis of the orbit. At the time of the orbital swelling there was much irritation of the skin thought to be a chemical reaction to a substance he has been working with. He was hospitalized for 2 days and received he says intravenous antibiotics and subsequent oral antibiotics. The skin lesions and the eye swelling have totally resolved. He still using a topical eyedrops he says pending another eye doctor appointment. He tells me there is an eye procedure planned for June. It sounds like he may be having a plastic procedure on his eyelids. He does not seem to have any other skin rashes or joint pains. He has noted a little bit of ankle edema in the past month. December 2022 Aki: The patient presents for evaluation of his SLE. I had been following him at [place]. He had skin rash, arthralgias, positive serologies and lupus nephritis. He was treated twice with CellCept for the lupus nephritis. Initially had focal nephritis treated with CellCept for about 2 years starting in 2005. With increased proteinuria he had another kidney biopsy showing diffuse nephritis in 2011 with minimal scarring. He was again on CellCept 2011 to 2013. He has remained on hydroxychloroquine since 2005. He said he had a recent eye exam last month that was okay. He gets occasional shoulder discomfort when working and has some right heel pain that seems consistent with plantar fasciitis. Otherwise he has no joint pain. There have been no recent skin rashes, oral ulcers, chest pain. He was recently diagnosed with type 2 diabetes and is on 500 mg b.i.d. metformin. Lisinopril is for hypertension. He is on 200 mg daily allopurinol for gout with no gout attacks in recent years. [facility] Medical History Diabetes mellitus Hx of completed stroke Hyperlipidemia Long-term use of hydroxychloroquine CKD (chronic kidney disease) stage 3, GFR 30-59 ml/min Gout Hypothyroid Hypertension Systemic lupus erythematosus Social History Household Members: Spouse Housing: House Do you presently have visiting nurse or other home services: No Alcohol intake: never Patient Tobacco Use Status: Never used Tobacco service: No Physical Exam Vital Signs: Last Vital Signs Temp 98.1 F 12/12/23 15:15 Pulse 64 12/12/23 15:15 BP 97/64 12/12/23 15:15 Pulse Ox 97 12/12/23 15:15 Oxygen Delivery Method Room Air 12/12/23 15:15 APPEARANCE: Patient in no acute distress, groomed and nourished EYES no redness, eyelids normal EXTREMITIES: There is no edema today. He has no calf tenderness, normal peripheral pulses. NEURO: Oriented and alert x3. No focal weakness. Reflexes symmetric. Gait normal. SKIN: No other skin rashes. JOINT EXAM:?? Right knee: pain-free range of motion with no swelling or tenderness. The skin wound overlying the patella has resolved. No induration or tenderness. Other joints have pain-free range of motion without any tenderness or swelling.? Assessment & Plan Assessment & Plan (1) Systemic lupus erythematosus: Comment: 2004: Rash, joint pains, Positive anti-DNA, proteinuria, renal Bx with focal GN 02/2005. Increased proteinuria 09/26; Cellcept restarted 10/27- stoppped 02/27(nephritis symptoms improved) Repeat renal biopsy - 02/12/12 - diffuse lupus nephritis, stage 3 to 4. Minimal scarring. Cellcept again [id number] with remission Eye exam for hydroxychloroquine toxicity negative February 2015, December 2016, December 2017, May 2019, Jun 2020, June 2021 Code(s): M32.9 - Systemic lupus erythematosus, unspecified Qualifiers: Systemic lupus erythematosus type: other Systemic lupus erythematosus organ involvement: glomerular disease Qualified Code(s): M32.14 - Glomerular disease in systemic lupus erythematosus (2) Long-term use of hydroxychloroquine: Code(s): Z79.899 - Other [place] [facility] (current[facility] drug therapy Plan # SLE/long-term use: His recent bout of dermatitis could be said to be related to his lupus. That has since been resolved with rounds of antibiotics, including doxycycline, which lasted over 2 months. Patient denies any lupus concerns since last visit. We will continue hydroxychloroquine 200 mg b.i.d.. Physical examination benign for lupus symptoms. We will update labs to evaluate for proteinuria and renal function also to assess the lupus measures. Patient has a history of lupus nephritis. Schedule eye exam 03/04/2024. #Gout:Continue Allopurinol 200 daily. Denied recent gout flare. Will obtain updated lab to assess uric acid levels. I spent 40 minutes reviewing history, evaluating patient, and documenting Follow-up in 6 months Orders: Orders Complete Blood Count Auto Diff 12/16/23 M32.9 - Systemic lupus erythematosus, unspecified, M10.9 - Gout, unspecified C Reactive Protein 12/16/23 M32.9 - Systemic lupus erythematosus, unspecified, M10.9 - Gout, unspecified UA w Microscopic 12/16/23 M32.9 - Systemic lupus erythematosus, unspecified, M10.9 - Gout, unspecified Anti Extractable Nuclear Ag 12/16/23 Z79.899 - Other stitching machine setter (current) drug therapy, M32.9 - Systemic lupus erythematosus, unspecified, N18.30 - Chronic kidney disease, stage 3 unspecified Anti DNA DS Antibody 12/16/23 Z79.899 - Other [place] [facility] (current) drug therapy, M32.9 - Systemic lupus erythematosus, unspecified, N18.30 - Chronic kidney disease, stage 3 unspecified Sjogren's Antibodies 12/16/23 Z79.899 - Other stitching machine setter (current) drug therapy, M32.9 - Systemic lupus erythematosus, unspecified, N18.30 - Chronic kidney disease, stage 3 unspecified Erythrocyte Sedimentation Rate 12/16/23 M32.9 - Systemic lupus erythematosus, unspecified, M10.9 - Gout, unspecified Complement C4 12/16/23 M32.9 - Systemic lupus erythematosus, unspecified, M10.9 - Gout, unspecified Complement C3 12/16/23 M32.9 - Systemic lupus erythematosus, unspecified, M10.9 - Gout, unspecified Comprehensive Met. Panel 12/16/23 M32.9 - Systemic lupus erythematosus, unspecified, M10.9 - Gout, unspecified Uric Acid 12/16/23 M32.9 - Systemic lupus erythematosus, unspecified, M10.9 - Gout, unspecified Protein Creatinine Ratio, Ur 12/16/23 M32.9 - Systemic lupus erythematosus, unspecified, M10.9 - Gout, unspecified WIL Reflex Titer and Pattern 12/16/23 Z79.899 - Other [place] [facility] (current) drug therapy, M32.9 - Systemic lupus erythematosus, unspecified, N18.30 - Chronic kidney disease, stage 3 unspecified DNA Double Stranded-Crithidia 12/16/23 Z79.899 - Other stitching machine setter (current) drug therapy, M32.9 - Systemic lupus erythematosus, unspecified, N18.30 - Chronic kidney disease, stage 3 unspecified Coding Level of Care Code Est Pt Level 4 (60732) Diagnoses Other systemic lupus erythematosus with glomerular disease M32.14 Systemic lupus erythematosus type: other Systemic lupus erythematosus organ involvement: glomerular disease Long-term use of hydroxychloroquine Z79.899
[2023-12-12 15:15] VITALS: BP 97/64; PULSE 64; TEMP 36.7; O2SAT 97
== END 2023-12-12 15:51 | disposition home or self-care (01) ==
PROVIDERS: PCP Internal Medicine; Visit Provider Nurse Practitioner Family
DX: M32.14 Glomerular disease in systemic lupus erythematosus (principal); Z79.899 Other long term (current) drug therapy
CPT/HCPCS: 99214

== ENCOUNTER → 2023-12-12 14:53 | Outpatient (BNVA) | payer BC, SELFPAY | PROVIDERS: PCP Internal Medicine; Visit Provider Nurse Practitioner Family ==

== ENCOUNTER 2023-12-16 08:54 | Outpatient (REF) | payer BC, SELFPAY ==
[2023-12-16 09:22] LABS: MANUAL DIFF FLAG NO
[2023-12-16 10:08] LABS: Basophils Absolute Auto 0.1 X10*3/uL (0.0-0.2); Basophils Percent Auto 1.1 % (0-2); Eosinophils Absolute Auto 0.1 X10*3/uL (0.0-0.4); Eosinophils Percent Auto 1.4 % (0-4); Hemoglobin 15.6 g/dl (14.0-18.0); Imm Gran Abs Auto 0.02 X10*3/uL (0.00-0.03); Imm Gran Pct Auto 0.3 % (0.0-0.4); Lymphocytes Absolute Auto 1.6 X10*3/uL (1.2-4.9); Lymphocytes Percent Auto 25.2 % (20-40); Mean Corpuscular HGB Conc 33.2 g/dl (31.0-36.0); Mean Corpuscular Hemoglobin 30.6 pg (27.0-33.0); Mean Corpuscular Volume 92.3 fL (80.0-98.0); Mean Platelet Volume 10.5 fL (9.4-12.4); Monocytes Absolute Auto 0.9 X10*3/uL (0.1-1.2); Monocytes Percent Auto 13.7 % (2-11); Neutrophils Absolute Auto 3.7 x10*3/uL (2.0-8.3); Neutrophils Percent Auto 58.3 % (45-73); Platelet Count 285 X10*3/uL (160-400); Red Blood Count 5.09 X10*6/uL (4.60-5.80); Red Cell Distribution Width 12.3 % (11.0-16.0); White Blood Count 6.4 X10*3/uL (4.8-10.8)
[2023-12-16 10:16] LABS: Appearance Urine Clear; Color Urine Yellow; Glucose Urine UA >=1000 mg/dL (Negative); Leukocyte Esterase Urine Negative (Negative); Nitrite Urine Negative (Negative); PH 6.5 (5.0-9.0); Specific Gravity - Urine 1.025 (1.005-1.025); UMIC TRIGGER UA YES; Urine Blood Negative (Negative); Urine Ketones Negative (Negative); Urine Protein Negative (Neg-Trace)
[2023-12-16 10:23] LABS: Bacteria Urine None Seen (None Seen); Hyaline Casts Urine 0-2 /LPF (0-2); RBC Urine 0-2 /HPF (0-2); Squamous Epithelial Cell Urine 0-2 /HPF (0-2); WBC Urine 0-5 /HPF (0-5)
[2023-12-16 10:42] LABS: Erythrocyte Sedimentation Rate 7 MM/HR (0-15)
[2023-12-16 10:48] LABS: Creatinine Urine 57.64 mg/dL; Protein/Creatinine Ratio, Ur 0.16 (<0.2); Total Protein Urine Random 9 mg/dL (<12)
[2023-12-16 11:17] LABS: Alanine Aminotransferase 28 U/L (0-40); Alkaline Phosphatase 57 U/L (39-117); Anion Gap 10 (12-20); Aspartate Amino Transferase 24 U/L (5-37); Bilirubin Total 0.3 mg/dL (0.0-1.0); Blood Urea Nitrogen 32 mg/dL (9-16); Calcium 9.8 mg/dL (8.4-10.2); Carbon Dioxide 29 mmol/L (22-29); Chloride 104 mmol/L (96-108); Estimated Glomerular Filt Rate > 60; Glucose Random 89 mg/dL (60-115); Potassium 4.1 mmol/L (3.3-5.1); Sodium 139 mmol/L (135-145); Total Protein 7.2 g/dL (6.5-8.0)
[2023-12-16 11:50] LABS: Uric Acid 4.4 mg/dL (3.4-7.0)
[2023-12-17 22:29] LABS: Anti DNA DS Antibody <1 IU/mL; Antibody to SS-A Antigen <1.0 NEG AI (<1.0 NEG); Antibody to SS-B Antigen <1.0 NEG AI (<1.0 NEG); SM/Ribonucleoprotein Ab <1.0 NEG AI (<1.0 NEG); Smith Protein <1.0 NEG AI (<1.0 NEG)
[2023-12-18 11:43] LABS: Complement C3 87 mg/dL (82-185)
[2023-12-18 12:53] LABS: Anti Nuclear Antibody Screen NEGATIVE (NEGATIVE)
[2023-12-21 13:57] LABS: DNAds, Crithidia Antibody Negative (Negative)
== END 2023-12-16 08:55 | disposition home or self-care (01) ==
LOC: HO.LAB 08:54
PROVIDERS: Visit Provider Nurse Practitioner Family
DX: M32.9 Systemic lupus erythematosus, unspecified (principal); M10.9 Gout, unspecified; N18.30 Chronic kidney disease, stage 3 unspecified; Z79.899 Other long term (current) drug therapy
CPT/HCPCS: 36415; 80053; 81001; 82570; 84156; 84550; 85025; 85652; 86038; 86140; 86160; 86225; 86235; 86255

== ENCOUNTER 2024-06-15 08:27 | Outpatient (AMB) | payer SELFPAY ==
--- NOTE | 2024-06-15 08:44 | MHC.OFFVIS ---
Vital Signs 06/15/24 08:45 Height 5 ft 8 in Weight 173 lb 1.006 oz BMI 26.3 BP 118/78 Blood Pressure Location Lt brachial Position Sitting Pulse 80 Pulse Source Pulse Oximeter Pulse Oximetry (%) 96 Oxygen Delivery Method Room Air Intake Visit Reasons: SLE/Gout/# disconnected pls verify tel # Intake Note: Patient presents for follow up on lupus and gout, He last saw Baylee Bravo on 11/2023. 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 At that time patient was stable with no complaints. Today patient has no complaints. Denies any prolonged morning stiffness, Raynaud's, photosensitivity, rash, alopecia, oral or nasal ulcers. Tolerating Plaquenil well Last ophthalmology visit 2 years ago at that time everything was normal. Currently working-makes [employer] Rheumatologic History: Diagnosis: 2004 Symptoms at diagnosis: Skin rash, arthritis, positive serologies and lupus nephritis Organs involved: Kidney. Biopsy [address] IV with minimal scarring 2004: Rash, joint pains, Positive anti-DNA, proteinuria, renal Bx with focal GN 02/2005. Increased proteinuria 09/26 Medication History: Plaquenil 200mg twice a day Allopurinol 200mg daily Cellcept restarted 10/27- stoppped 02/27(nephritis symptoms improved) Repeat renal biopsy - 02/12/12 - diffuse lupus nephritis, stage 3 to 4. Minimal scarring. Cellcept again [id number] with remission COUNTS INCLUDE 234 BEDS AT [facility] Medical History (Updated 06/15/24 @ 09:15 by Gisela Gant MD) On allopurinol therapy Diabetes mellitus Hx of completed stroke Hyperlipidemia Long-term use of hydroxychloroquine CKD (chronic kidney disease) stage 3, GFR 30-59 ml/min Gout Hypothyroid Hypertension Systemic lupus erythematosus Social History Household Members: Spouse Housing: House Do you presently have visiting nurse or other home services: No Alcohol intake: never Patient Tobacco Use Status: Never used Tobacco service: No Review of Systems Const Details: Review of Systems Constitutional: Denies fever, chills, weight loss ENT: Denies vision changes, eye pain or eye redness, dental caries, dry mouth GI: Denies nausea, vomiting, diarrhea, abdominal pain, change in BM Pulm: Denies SOB, BERGER, hemoptysis, wheezing Cards: Denies chest pain, palpitations Skin: Denies Raynaud's, rash, nail changes, photosensitivity, RISK [employer] OFFICER: Denies headaches, weakness, paresthesias, recurrent falls MSK: Denies joint pain. Denies joint swelling, muscle weakness, bone pain All other systems reviewed and are unremarkable except noted above Review of Symptoms Physical Exam Vital Signs: Last Vital Signs Pulse 80 06/15/24 08:45 BP 118/78 06/15/24 08:45 Pulse Ox 96 06/15/24 08:45 Oxygen Delivery Method Room Air 06/15/24 08:45 BMI result Body Mass Index 26.3 Const Other: Physical Examination Patient well appearing and in no apparent painful distress Able to rise from chair without support. ?Gait normal. Constitutional: ?Mucous membranes pink and moist patient alert and cooperative HEENT: ?Conjunctiva and sclera clear. ?Pupils equal round and reactive to light. ?No lymphadenopathy. ?Normal dentition. Resp: ?Normal respiratory effort and able to speak in complete sentences. ?Clear to auscultation bilaterally. ?No crackles, rales, rhonchi, wheezes heard. Cards: ?Regular rate and rhythm. ?S1 and S2 heard no murmurs. ?Radial pulses intact bilaterally MSK: ?No deformity, swelling, abnormalities noted to bilateral hands. ?No evidence of synovitis. ?Able to move all joints with full range of motion, without limitation. Results Reviewed Results Reviewed: Laboratory Tests 05/13/23 05/28/23 05/29/23 10:20 07:18 05:34 WBC RBC Hgb Hct Plt Count Sodium 135 Potassium 3.8 Chloride 109 H Carbon Dioxide 20 L Anion Gap 10 L BUN 25 H Creatinine 0.83 Uric Acid C-Reactive Protein Urine Color Yellow Urine Appearance Clear Urine pH 5.5 Ur Specific [place] 1.020 Urine Protein Trace Urine Glucose (UA) >=1000 H Protein/Creatinin Ratio 0.18 Double Strand DNA Ab Complement C3 Complement C4 12/16/23 12/16/23 12/16/23 09:01 09:12 09:17 WBC 6.4 RBC 5.09 D Hgb 15.6 D Hct 47.0 D Plt Count 285 Sodium 139 Potassium 4.1 Chloride 104 Carbon Dioxide 29 Anion Gap 10 L BUN 32 H Creatinine 1.11 Uric Acid 4.4 C-Reactive Protein 0.60 H Urine Color Yellow Urine Appearance Clear Urine pH 6.5 Ur Specific [place] 1.025 Urine Protein Negative Urine Glucose (UA) >=1000 H Protein/Creatinin Ratio 0.16 Double Strand DNA Ab <1 Complement C3 87 Complement C4 17 All results and imaging reviewed Assessment & Plan Assessment & Plan (1) Systemic lupus erythematosus: Comment: 2005: Rash, joint pains, Positive anti-DNA, proteinuria, renal Bx with focal GN 02/2005. Increased proteinuria 09/26; Cellcept restarted 10/27- stoppped 02/27(nephritis symptoms improved) Repeat renal biopsy - 02/12/12 - diffuse lupus nephritis, stage 3 to 4. Minimal scarring. Cellcept again [id number] with remission Eye exam for hydroxychloroquine toxicity negative February 2015, December 2016, December 2017, May 2019, Jun 2020, June 2021 Code(s): M32.9 - Systemic lupus erythematosus, unspecified Category: Medical Qualifiers: Systemic lupus erythematosus organ involvement: glomerular disease Systemic lupus erythematosus type: other Qualified Code(s): M32.14 - Glomerular disease in systemic lupus erythematosus Plan: #SLE complicated by LN Patient with lupus complicated by lupus nephritis class 4. Currently in full remission. Completed CellCept 2013. No current signs or symptoms associated with flare of his underlying lupus. Lab work all within normal limits. Follow up in 4 months. (2) Gout: Comment: Left wrist attack: MSU crystals present allopurinol since 2011 Code(s): M10.9 - Gout, unspecified Category: Medical Plan: #Non tophaceous gout Patient with non tophaceous polyarticular gout. Last attack more than 10 years ago. Currently on allopurinol 200 mg daily. Uric acid at goal. (3) On allopurinol therapy: Code(s): Z79.899 - Other [facility] (current) drug therapy Category: Medical Plan: #intermediate frame tender Allopurinol Risks and benefits of allopurinol discussed with the patient in the management of the gout. Benefits include decreased gout flares and improvement of serum uric acid Risks include allopurinol hypersensitivity syndrome especially if they are HLA B 5801 positive, GI upset, rash HLA B 58/01 checked of or descent (4) Long-term use of hydroxychloroquine: Code(s): Z79.899 - Other intermediate frame tender (current) drug therapy Category: Medical Plan: Discussed with patient the risks and benefits of hydroxychloroquine in managing the rheumatic condition Benefits include: - Reduced pain, reduce mortality, maintenance of remission and reduction of flares Risks include: - GI upset, skin hyperpigmentation, retinal toxicity (especially after more than 5 years of use), myopathy Advised yearly ophthalmology visits Last ophthalmology visit: 2 years ago. Advised to follow up with eye doctor before the end of the year [id number] [facility] Orders: Orders C Reactive Protein Today M32.14 - Glomerular disease in systemic lupus erythematosus Erythrocyte Sedimentation Rate Today M32.14 - Glomerular disease in systemic lupus erythematosus UA w Microscopic Today M32.14 - Glomerular disease in systemic lupus erythematosus Complement C3 4 Months M10.9 - Gout, unspecified, M32.14 - Glomerular disease in systemic lupus erythematosus Anti DNA DS Antibody 4 Months M10.9 - Gout, unspecified, M32.14 - Glomerular disease in systemic lupus erythematosus C Reactive Protein 4 Months M10.9 - Gout, unspecified, M32.14 - Glomerular disease in systemic lupus erythematosus Erythrocyte Sedimentation Rate 4 Months M10.9 - Gout, unspecified, M32.14 - Glomerular disease in systemic lupus erythematosus Protein Creatinine Ratio, Ur 4 Months M10.9 - Gout, unspecified, M32.14 - Glomerular disease in systemic lupus erythematosus Uric Acid 4 Months M10.9 - Gout, unspecified, M32.14 - Glomerular disease in systemic lupus erythematosus Complement C3 Today M32.14 - Glomerular disease in systemic lupus erythematosus Complement C4 Today M32.14 - Glomerular disease in systemic lupus erythematosus Protein Creatinine Ratio, Ur Today M32.14 - Glomerular disease in systemic lupus erythematosus Anti DNA DS Antibody Today M32.14 - Glomerular disease in systemic lupus erythematosus Complete Blood Count Auto Diff Today M32.14 - Glomerular disease in systemic lupus erythematosus Comprehensive Met. Panel Today M32.14 - Glomerular disease in systemic lupus erythematosus Uric Acid Today M10.9 - Gout, unspecified Complement C4 4 Months M10.9 - Gout, unspecified, M32.14 - Glomerular disease in systemic lupus erythematosus Comprehensive Met. Panel 4 Months M10.9 - Gout, unspecified, M32.14 - Glomerular disease in systemic lupus erythematosus Complete Blood Count Auto Diff 4 Months M10.9 - Gout, unspecified, M32.14 - Glomerular disease in systemic lupus erythematosus Medications: Refilled hydroxychloroquine 200 mg PO BID 60 tabs 6RF allopurinol 200 mg (2 x 100 mg) PO DAILY 60 tabs 6RF Coding Level of Care Code Est Pt Level 4 (64809) Complex EM visit Add On G2211 Diagnoses Other systemic lupus erythematosus with glomerular disease M32.14 Systemic lupus erythematosus organ involvement: glomerular disease Systemic lupus erythematosus type: other Gout M10.9 On allopurinol therapy Z79.899 Long-term use of hydroxychloroquine Z79.899
[2024-06-15 08:45] VITALS: BP 118/78; PULSE 80; O2SAT 96; BMI 26.3
== END 2024-06-15 09:11 | disposition home or self-care (01) ==
PROVIDERS: PCP Internal Medicine; Visit Provider Student in an Organized Health Care Education/Training Program
DX: M32.14 Glomerular disease in systemic lupus erythematosus (principal); M10.9 Gout, unspecified; Z79.899 Other long term (current) drug therapy
CPT/HCPCS: 99214

== ENCOUNTER → 2024-06-15 08:27 | Outpatient (BNVA) | payer BC, SELFPAY | PROVIDERS: PCP Internal Medicine; Visit Provider Student in an Organized Health Care Education/Training Program ==

== ENCOUNTER 2024-06-15 09:19 | Outpatient (REF) | payer BC, SELFPAY ==
[2024-06-15 11:03] LABS: MANUAL DIFF FLAG NO
[2024-06-15 11:11] LABS: Appearance Urine Clear; Color Urine Yellow; Glucose Urine UA >=1000 mg/dL (Negative); Leukocyte Esterase Urine Negative (Negative); Nitrite Urine Negative (Negative); PH 5.5 (5.0-9.0); Specific Gravity - Urine 1.025 (1.005-1.025); UMIC TRIGGER UA YES; Urine Blood Negative (Negative); Urine Ketones Negative (Negative); Urine Protein Trace mg/dL (Neg-Trace)
[2024-06-15 11:15] LABS: Basophils Absolute Auto 0.1 X10*3/uL (0.0-0.2); Basophils Percent Auto 1.1 % (0-2); Eosinophils Absolute Auto 0.2 X10*3/uL (0.0-0.4); Eosinophils Percent Auto 1.7 % (0-4); Hematocrit 48.2 % (42.0-52.0); Hemoglobin 16.6 g/dl (14.0-18.0); Imm Gran Abs Auto 0.05 X10*3/uL (0.00-0.03); Imm Gran Pct Auto 0.6 % (0.0-0.4); Lymphocytes Absolute Auto 1.7 X10*3/uL (1.2-4.9); Lymphocytes Percent Auto 18.6 % (20-40); Mean Corpuscular HGB Conc 34.4 g/dl (31.0-36.0); Mean Corpuscular Hemoglobin 30.9 pg (27.0-33.0); Mean Corpuscular Volume 89.8 fL (80.0-98.0); Mean Platelet Volume 10.3 fL (9.4-12.4); Monocytes Percent Auto 11.2 % (2-11); Neutrophils Absolute Auto 5.9 x10*3/uL (2.0-8.3); Neutrophils Percent Auto 66.8 % (45-73); Platelet Count 341 X10*3/uL (160-400); Red Blood Count 5.37 X10*6/uL (4.60-5.80); Red Cell Distribution Width 12.2 % (11.0-16.0); White Blood Count 8.9 X10*3/uL (4.8-10.8)
[2024-06-15 11:16] LABS: Bacteria Urine None Seen (None Seen); Hyaline Casts Urine 0-2 /LPF (0-2); RBC Urine 0-2 /HPF (0-2); Squamous Epithelial Cell Urine 0-2 /HPF (0-2); WBC Urine 0-5 /HPF (0-5)
[2024-06-15 11:30] LABS: Alanine Aminotransferase 25 U/L (0-40); Albumin Level 4.3 g/dL (3.5-5.0); Alkaline Phosphatase 81 U/L (39-117); Anion Gap 15 (12-20); Aspartate Amino Transferase 22 U/L (5-37); Bilirubin Total 0.3 mg/dL (0.0-1.0); Blood Urea Nitrogen 31 mg/dL (9-16); C Reactive Protein 0.31 mg/dL (< or = 0.50); Calcium 9.7 mg/dL (8.4-10.2); Carbon Dioxide 20 mmol/L (22-29); Chloride 107 mmol/L (96-108); Estimated Glomerular Filt Rate 49; Glucose Random 190 mg/dL (60-115); Potassium 4.4 mmol/L (3.3-5.1); Sodium 138 mmol/L (135-145); Total Protein 7.8 g/dL (6.5-8.0); Uric Acid 4.4 mg/dL (3.4-7.0)
[2024-06-15 11:49] LABS: Creatinine Urine 87.76 mg/dL; Protein/Creatinine Ratio, Ur 0.16 (<0.2); Total Protein Urine Random 14 mg/dL (<12)
[2024-06-15 12:00] LABS: Erythrocyte Sedimentation Rate 6 MM/HR (0-15)
[2024-06-16 12:32] LABS: Complement C3 145 mg/dL (82-185)
[2024-06-16 22:43] LABS: Anti DNA DS Antibody <1 IU/mL
== END 2024-06-15 09:20 | disposition home or self-care (01) ==
LOC: HO.10HDL 09:19
PROVIDERS: Visit Provider Student in an Organized Health Care Education/Training Program
DX: M32.14 Glomerular disease in systemic lupus erythematosus (principal); M10.9 Gout, unspecified
CPT/HCPCS: 36415; 80053; 81001; 82570; 84156; 84550; 85025; 85652; 86140; 86160; 86225